=== PATIENT | male | born 1945 | race Caucasian/White ===

== ENCOUNTER 2019-01-27 07:28 | Outpatient (RCR) | payer MEDICARE, SELFPAY | END 2019-01-27 23:59 | disposition home or self-care (01) | LOC: ANHAUDIO 07:28 | PROVIDERS: PCP Family Medicine; Visit Provider Family Medicine | DX: Z46.1 Encounter for fitting and adjustment of hearing aid (principal) | CPT/HCPCS: 99199; V5014 ==

== ENCOUNTER 2019-10-09 08:48 | Outpatient (NON) | payer MEDICARE, SELFPAY ==
[2019-10-09 20:28] LABS: SARS-CoV-2 RNA PCR Negative
== END 2019-10-09 08:49 ==
PROVIDERS: PCP Family Medicine; Visit Provider Family Medicine
DX: Z20.828 Contact with and (suspected) exposure to other viral communicable diseases (principal)
CPT/HCPCS: 87635; C9803; U0003

== ENCOUNTER 2019-11-13 00:45 | Outpatient (CLI) | payer MEDICARE, SELFPAY ==
[2019-11-13 18:12] LABS: SARS-CoV-2 RNA PCR Negative
== END 2019-11-13 00:46 | disposition home or self-care (01) ==
LOC: ANHCOVIDDT 00:45
PROVIDERS: PCP Family Medicine; Visit Provider Internal Medicine Gastroenterology
DX: Z01.812 Encounter for preprocedural laboratory examination (principal); Z20.828 Contact with and (suspected) exposure to other viral communicable diseases
CPT/HCPCS: 87635; C9803; U0003

== ENCOUNTER 2019-11-15 02:04 | Day surgery (SDC) | payer MEDICARE, SELFPAY ==
[2019-10-24 10:54] VITALS: BMI 30.3
--- NOTE | 2019-11-15 08:24 | WPDANESEPPF ---
Anes - Initial Pre Proc Eval Procedure: Operation Date: 11/15/19 13:00 Proposed Procedures p Screening Colonoscopy - Maximus Martell DO Date/Time: 11/15/19 08:24 Surgeon: Maximus Martell DO Pre Op Diagnosis: History of Colon Polyps Patient Data Age: 73 Gender: M Height: 1.93 m Weight: 113 kg Allergies Allergy/AdvReac Type Severity Reaction Status Date / Time No Known Allergies Allergy Verified 11/15/19 12:32 Home Medications Medication Instructions Recorded Confirmed Type albuterol sulfate [ProAir HFA] 1 puff INHALATION DAILY 01/01/19 10/24/19 History aspirin 325 mg PO DAILY 01/01/19 10/24/19 History ezetimibe 10 mg PO DAILY 01/01/19 10/24/19 History fexofenadine [Padmini Allergy] 180 mg PO DAILY 01/01/19 10/24/19 History finasteride 5 mg PO DAILY 01/01/19 10/24/19 History mzqagessrgd-virmamgej-mrebmyyw 1 inh INHALATION DAILY 01/01/19 10/24/19 History [Trelegy Ellipta] levothyroxine 150 mcg PO DAILY 01/01/19 10/24/19 History lisinopril 2.5 mg PO DAILY 01/01/19 10/24/19 History montelukast 10 mg PO DAILY 01/01/19 10/24/19 History vsyutoyojjky-ozppgndk-nwgech 1 tablet PO DAILY 01/01/19 10/24/19 History [Multivitamin 50 Plus] nitroglycerin 0.4 mg SUBLINGUAL PRN PRN 01/01/19 10/24/19 History simvastatin 40 mg PO DAILY 01/01/19 10/24/19 History tamsulosin 0.4 mg PO DAILY 01/01/19 10/24/19 History psyllium husk [Metamucil] 1 tbsp PO DAILY 10/24/19 10/24/19 History Patient hx anesthesia problems: none Family hx anesthesia problems: none PMFSH Past Medical History Medical History (Updated 11/14/19 @ 14:29 by Irvin Hayden DO) BPH (benign prostatic hyperplasia) CAD (coronary artery disease) COPD (chronic obstructive pulmonary disease) Diabetes type 2, controlled GERD (gastroesophageal reflux disease) Hyperlipidemia Hypertension Hypothyroidism Surgical History Surgical History (Updated 11/15/19 @ 13:05 by Irvin Hayden, DO) History of coronary artery stent placement x1, 2017 Social History Social History Smoking packs per day: 2.5 Smoking cigarettes per day: 50.0 Years smoked: 30 Smoking pack-years: 75.00 Smoking status: Former smoker Tobacco type: cigarettes Alcohol intake: current Drinks per week: 14 Alcohol use details: 2 VODKA/TONICS A DAY Substance use: never Substance use type: does not use Living arrangements: alone Spiritual care concerns: No Anes - Eval Final PreProcedure Day of Procedure 11/15/19 08:24 Patient weight: overweight Heart: regular rate and rhythm Lungs: clear to auscultation and normal air movement Airway: Mallampati scale class II Neurological: alert and oriented Last oral intake: >/= 8 hours ASA classification: III Emergent: no Anesthetic plan: proceed Anesthesia type and monitoring: general GIVS and standard monitoring Informed Consent: The patient's anesthetic plan and its attendant risks and benefits were discussed with the patient/family/POA. Questions were solicited and answers provided to the satisfaction of the patient/family/POA.
[2019-11-15 12:34] VITALS: BP 131/93; PULSE 93; RESP 20; TEMP 36.5; O2SAT 99; BMI 29.7
[2019-11-15] MEDS: LACTATED RINGERS 1,000 ML 150 ML IV CONT (13:02)
--- NOTE | 2019-11-15 13:24 | PM.IMHP ---
H&P: [facility] History of Present Illness Date/Time: 11/15/19 13:24 Chief complaint: History of Colon Polyps Narrative: Reason for visit colonoscopy. Impression: Here very pleasant gentleman that is here for screening and surveillance colonoscopy. He has a history adenomatous colon polyps. History of constipation rectal bleeding. The bleeding may be prerenal origin. Constipation is most likely functional. HTN. HLD. BPH. COPD. CAD status post stent placement x1. Skin cancer: Melanoma. Diabetes mellitus. Recommendation: Colonoscopy. History: Very pleasant gentleman is here for screening and surveillance colonoscopy. He has a history adenomatous colon polyps. Patient does have some chronic constipation and did notice some possible blood in the stool. He is here for colonoscopy to assess for inflammatory neoplastic disease. The patient does have a history of a chronic cough which is attributed to COPD. He has occasional shortness of breath and dyspnea exertion. Physical examination: General: very pleasant patient in no acute distress. HEENT: Head was normocephalic sclerae is clear mouth without masses neck was supple. Heart: Rate rhythm regular without S3 or S4. Lungs: CTA. Abdomen: Soft with no guarding or rigidity. Bowel sounds were active. Neurologic: Cranial nerves 2 through 12 intact. No focal defects. No clonus. Musculoskeletal system: Revealed no joint tenderness or swelling no muscle atrophy. Extremities: Reveal no significant edema. Skin: Warm and dry with normal turgor. Mental status: intact. Patient is alert and oriented. Review of Systems Review of Systems: All systems reviewed & are unremarkable except as noted in HPI and below PMFSH Past Medical History Medical History (Updated 11/14/19 @ 14:29 by Irvin Haydne DO) BPH (benign prostatic hyperplasia) CAD (coronary artery disease) COPD (chronic obstructive pulmonary disease) Diabetes type 2, controlled GERD (gastroesophageal reflux disease) Hyperlipidemia Hypertension Hypothyroidism Surgical History Surgical History (Updated 11/15/19 @ 13:05 by Irvin Hayden DO) History of coronary artery stent placement x1, 2016 Social History Social History Smoking packs per day: 2.5 Smoking cigarettes per day: 50.0 Years smoked: 30 Smoking pack-years: 75.00 Smoking status: Former smoker Tobacco type: cigarettes Alcohol intake: current Drinks per week: 14 Alcohol use details: 2 VODKA/TONICS A DAY Substance use: never Substance use type: does not use Living arrangements: alone Spiritual care concerns: No Meds Home Medications and Allergies Home Medications Medication Instructions Recorded Confirmed Type albuterol sulfate [ProAir HFA] 1 puff INHALATION DAILY 01/01/19 10/24/19 History aspirin 325 mg PO DAILY 01/01/19 10/24/19 History ezetimibe 10 mg PO DAILY 01/01/19 10/24/19 History fexofenadine [Padmini Allergy] 180 mg PO DAILY 01/01/19 10/24/19 History finasteride 5 mg PO DAILY 01/01/19 10/24/19 History hrabibwujcz-ufmzihcee-yivhuuqr 1 inh INHALATION DAILY 01/01/19 10/24/19 History [Trelegy Ellipta] levothyroxine 150 mcg PO DAILY 01/01/19 10/24/19 History lisinopril 2.5 mg PO DAILY 01/01/19 10/24/19 History montelukast 10 mg PO DAILY 01/01/19 10/24/19 History ovbjqvhitlhe-spkrcvvi-omuada 1 tablet PO DAILY 01/01/19 10/24/19 History [Multivitamin 50 Plus] nitroglycerin 0.4 mg SUBLINGUAL PRN PRN 01/01/19 10/24/19 History simvastatin 40 mg PO DAILY 01/01/19 10/24/19 History tamsulosin 0.4 mg PO DAILY 01/01/19 10/24/19 History psyllium husk [Metamucil] 1 tbsp PO DAILY 10/24/19 10/24/19 History Allergies Allergy/AdvReac Type Severity Reaction Status Date / Time No Known Allergies Allergy Verified 11/15/19 12:32 Vital Signs Vital Signs - 24 hr 11/15/19 12:34 Temperature 36.5 C Pulse
[2019-11-15 14:33] VITALS: BP 80/51; PULSE 75; RESP 26; O2SAT 99
[2019-11-15 14:43] VITALS: BP 83/58; PULSE 74; RESP 21; O2SAT 99
[2019-11-15 14:53] VITALS: BP 100/67; PULSE 70; RESP 19; O2SAT 100
== END 2019-11-15 15:05 | disposition home or self-care (01) ==
PROVIDERS: PCP Family Medicine; Visit Provider Internal Medicine Gastroenterology
PROC: 0DJD8ZZ Inspection of Lower Intestinal Tract, Via Natural or Artificial Opening Endoscopic (ICD-10-PCS; CPT 45378; principal; 2019-11-15 13:00)
DX: Z12.11 Encounter for screening for malignant neoplasm of colon (principal); D12.2 Benign neoplasm of ascending colon; K63.5 Polyp of colon; K57.30 Diverticulosis of large intestine without perforation or abscess without bleeding; K64.8 Other hemorrhoids; I10 Essential (primary) hypertension; I25.10 Atherosclerotic heart disease of native coronary artery without angina pectoris; E78.5 Hyperlipidemia, unspecified; E11.9 Type 2 diabetes mellitus without complications; E03.9 Hypothyroidism, unspecified; K21.9 Gastro-esophageal reflux disease without esophagitis; J44.9 Chronic obstructive pulmonary disease, unspecified; N40.0 Benign prostatic hyperplasia without lower urinary tract symptoms; Z79.82 Long term (current) use of aspirin; Z95.5 Presence of coronary angioplasty implant and graft; Z87.891 Personal history of nicotine dependence
CPT/HCPCS: 45380; 88305; J2704; J7120

== ENCOUNTER 2020-01-19 10:52 | Outpatient (CLI) | payer MEDICARE, SELFPAY ==
--- NOTE | ~2020-01-19 | XR_ITS ---
XR abdomen/kub 1V DATE: 01/19/2020 11:17 INDICATION: Left lower quadrant abdominal pain, constipation TECHNIQUE: AP projection, 2 views COMPARISON: 02/27/2011 retrogram pyelogram 01/09/2011 CT urogram FINDINGS: There is a moderate amount of fecal material in the colon but no evidence of bowel obstruct ion. The psoas shadows are intact. No visceromegaly is detected. 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 IMPRESSION: Nonspecific abdomen; no evidence of bowel obstruction Reviewed, dictated and finalized at [facility]. Reviewed, dictated and finalized at location A. HER POLISHER
== END 2020-01-19 10:53 | disposition home or self-care (01) ==
LOC: ANHIMG 10:59
PROVIDERS: PCP Family Medicine; Visit Provider Nurse Practitioner
DX: R10.32 Left lower quadrant pain (principal); M48.15 Ankylosing hyperostosis [Forestier], thoracolumbar region; K57.92 Diverticulitis of intestine, part unspecified, without perforation or abscess without bleeding; K59.00 Constipation, unspecified
CPT/HCPCS: 74018

== ENCOUNTER → 2020-08-07 14:31 | Outpatient (CLI) | payer MEDICARE, SELFPAY ==
--- NOTE | ~2020-08-07 | XR_ITS ---
EXAMINATION: XR knee LT min 4V DATE: 08/07/2020 15:00 INDICATION: Left knee pain. TECHNIQUE: 4 views of left knee were obtained. COMPARISON: None. FINDINGS: Bone alignment is normal. No fracture. There is mild tricompartmental osteoarthritis charac terized by tiny marginal osteophytes. No knee joint effusion. IMPRESSION: 1. Mild left knee osteoarthritis. Reviewed, dictated and finalized at location A.
== END ==
PROVIDERS: PCP Family Medicine; Visit Provider Nurse Practitioner
DX: M25.562 Pain in left knee (principal); M17.12 Unilateral primary osteoarthritis, left knee
CPT/HCPCS: 73564

== ENCOUNTER → 2020-10-05 09:34 | Outpatient (CLI) | payer MEDICARE, SELFPAY ==
--- NOTE | ~2020-10-05 | MR_ITS ---
EXAMINATION: MR knee LT wo con DATE: 10/05/2020 11:08 INDICATION: 6-8 months of medial left knee pain TECHNIQUE: Magnetic resonance imaging (MRI) of the left knee was performed without intravenous contra st. Sequences included coronal PD-weighted FSE, coronal PD-weighted FS FSE, sagittal T2-weighted FSE , sagittal PD-weighted FS FSE and axial PD weighted fat saturated FSE. COMPARISON: Left knee radiographs dated 08/07/2020 FINDINGS: Medial compartment: Complex medial meniscal tear which includes both a longitudinal horizontal tear plane extending to th e inferior articular surface of the body and posterior horn as well as a vertical parrot beak configu ration tear plane at the posterior horn. Articular cartilage is normal. Lateral compartment: Lateral meniscus is normal. Articular cartilage is normal. Patellofemoral compartment: Deep chondral fissure with mild underlying subarticular edema extending obliquely across the medial p atellar facet. Additional partial thickness chondral flap tear at the central aspect of the lateral f acet. The flap which measures approximately 4 mm medial collateral involves approximately one third o f the cartilage thickness on axial series 4, image 10. Trochlear cartilage is normal. Ligaments and tendons: Anterior and posterior cruciate ligaments are normal. There is edema extending along the deep and sup erficial margin of the cephalad half of the medial collateral ligament which is mildly thickened but without significant increased signal at its femoral origin. Could not exclude acute sprain however th is more likely represents scarring related to chronic sprain with surrounding reactive edema related to the torn meniscus. The extensor mechanism is normal. The visualized medial and lateral hamstring t endons as well as the iliotibial band are normal. Fluid: Small left knee joint effusion at the suprapatellar pouch. Moderate-sized Cabello's cyst measuring 6 cm craniocaudally and measuring up to 1.3 x 1.0 cm. No loose osteochondral bodies identified. Osseous/other: Bone alignment is normal.. No fracture or pathologic marrow replacing process. IMPRESSION: 1. Complex medial meniscal tear. 2. 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 3. Age-indeterminate sprain of the proximal medial collateral ligament, favor chronic. 4. Small left knee joint effusion and moderate-sized Cabello's cyst. Reviewed, dictated and finalized at location A. IMPRESSION: 1. Complex medial meniscal tear. 2. 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 3. Age-indeterminate sprain of the proximal medial collateral ligament, favor c hronic. 4. Small left knee joint effusion and moderate-sized Cabello's cyst.
== END ==
PROVIDERS: Visit Provider Nurse Practitioner Family
DX: M25.562 Pain in left knee (principal); S83.232A Complex tear of medial meniscus, current injury, left knee, initial encounter; S83.412A Sprain of medial collateral ligament of left knee, initial encounter; M25.462 Effusion, left knee; M71.22 Synovial cyst of popliteal space [Baker], left knee
CPT/HCPCS: 73721

== ENCOUNTER 2020-10-08 08:30 | Outpatient (RCR) | payer MEDICARE, SELFPAY ==
--- NOTE | 2020-09-03 10:55 | PTOPEVAL ---
Thank you for referring Eligio Franklin to [facility].? The patient is scheduled to be seen for therapy? 1 x/week for 6 weeks. Please review, sign, date and return this plan of care MARISOL. I agree with and certify that the following plan of care is medically necessary. Referring Physician Date Attending Provider: Kermit Sullivan MD Diagnosis OA of left knee Additional Evaluation Detail He was walking 1.5 to 2 miles but stopped due to pain. Subjective Information He hit his left knee on this Query Text:As Reported By Patient/ mower 6 months ago. He has Family been wearing a basic knee wrap brace to help his pain. He has been using ice for the pain. He was having increased pain with twisting the knee, distance walking, squating, getting on/off the ground. Pain Assessment Self Report Pain Assessment Left Knee(s) Reported Pain Level 4 Pain Description Aching,Tightness Pain Frequency Continuous Lowest Pain Intensity 3 Greatest Pain Intensity 7 Pain Aggravating Factors ADL's,Bending,Exercise/ Activity,Stair Climbing, Walking,Weight Bearing/ Standing Lower Extremity Range of Motion Knee Range of Motion Left Knee Flexion Range of Motion - Active 118 Knee Extension Range of Motion - Active 0 Lower Extremity Muscle Strength Testing Hip Strength Bilateral Hip Flexion Strength 4+ Good + Hip Extension Strength 4 Good Hip Abduction Strength 3+ Fair + Knee Strength Bilateral Knee Flexion Strength 5 Normal Knee Extension Strength 5 Normal Muscle Length Testing Muscle Length Testing Two-Joint Hip Flexor Shortened Muscles Short (R) Iliopsoas,Short (L) Iliopsoas,Short (R) Rectus Femoris,Short (L) Rectus Femoris,Short (R) Ilial Tib Band,Short (L) Ilial Tib Band Piriformis w/Hip Flexion <90 Degrees (R) Moderate Tightness,(L) Moderate Tightness Right Prone Hip Internal Rotator Length 20 (degrees) Left Prone Hip Internal Rotator Length ( 20 degrees) Left Hamstring Length -35:(90 - 90 Position) Right Hamstring Length -35:(90 - 90 Position) Posture Standing Position Weight Distribution Weight Shifted Right Hip Posture (L) Externally Rotated,(R) Externally Rotated Additional Posture Comments
--- NOTE | 2020-10-08 09:21 | PTOPEVAL ---
Physical Therapy Discharge Summary Thank you for referring Eligio Franklin to [facility]. Eligio has attended 6 therapy visits to address left knee pain. He demonstrates improved pain, strength and function. He has achieved his therapy goals at this time. Will DC skilled therapy services with recommendations he continue with HEP. Please review, sign, date and return this discharge summary MARISOL. I agree with and certify that the following plan of care is medically necessary. Referring Physician Date Attending Provider: Kermit Sullivan MD Problem Diagnosis OA of left knee Subjective Information He does feel his knee is Query Text:As Reported By Patient/ better. STates the stretches Family have helped. Reports improved left knee is popping and clicking with movement. Denies feeling the knee out of joint . He has not returned to his normal walk because he is performing his exercises instead. He is more aware of his leg position with activities. Denies any problems with regular walking, community walking in the store or on steps. Pain Assessment Self Report Pain Assessment Left Knee(s) Reported Pain Level 2 Pain Description Aching Lowest Pain Intensity 0 Greatest Pain Intensity 2 Lower Extremity Muscle Strength Testing Hip Strength Bilateral Hip Flexion Strength 5 Normal Hip Extension Strength 5 Normal Hip Abduction Strength 4- Good - Special Tests-Lower Extremity Hip Special Tests Trendelenburg Sign Positive Left,Positive Right Hip Special Test Comments single leg stance: left: 8 sec, right: 7 sec, poor trunk and LE control functional squat/sit<>stand: demo proper LE control and position- no pain Gait Assessment Gait Pattern Assessment Gait Pattern Observed Decreased Stride Length - Left ,Decreased Stride Length - Right,No Heel Strike - Left,No Heel Strike - Right,Trunk Lateral Lean - Left,Trunk Lateral Lean - Right Other Gait Observations jomar hip ext. rotation 2 Minute Walk Total Distance Walked (feet) 447 2 Minute Walk Gait Speed Score (feet/ 3.72 second) 2 Minute Walk Test Comments left knee pain 2/ Stair Climbing Assessment
== END 2020-10-08 16:59 | disposition home or self-care (01) ==
LOC: ANHPT 08:30
PROVIDERS: PCP Family Medicine; Visit Provider Family Medicine
DX: M17.12 Unilateral primary osteoarthritis, left knee (principal)
CPT/HCPCS: 97110; 97140; 97161

== ENCOUNTER → 2021-08-25 10:50 | Outpatient (CLI) | payer MEDICARE, SELFPAY ==
--- NOTE | ~2021-08-25 | XR_ITS ---
EXAMINATION: XR chest 2V Exam Date/Time: 08/25/2021 11:10 CDT HISTORY: Chest discomfort Comparison: 03/03/2018. RESULT: Lines, tubes, and devices: None. Lungs and pleura: Diffuse reticular opacities. Bibasilar scar/atelectasis and senescent change. No f ocal consolidation. Cardiomediastinal silhouette: Stable cardiomediastinal silhouette. Other: No acute osseous or upper abdominal finding. IMPRESSION: Pulmonary findings may reflect mild interstitial edema. Reviewed, dictated and finalized at location K.
== END ==
PROVIDERS: PCP Family Medicine; Visit Provider Nurse Practitioner Adult Health
DX: R07.89 Other chest pain (principal); J22 Unspecified acute lower respiratory infection
CPT/HCPCS: 71046

== ENCOUNTER 2022-03-12 00:28 | Day surgery (SDC) | payer MEDICARE, SELFPAY ==
[2022-02-25 09:02] VITALS: BMI 29.2
--- NOTE | 2022-02-25 10:15 | PC.NURSE ---
Patient stated during pre-op interview that he does have problems with constipation and his last prep for colonoscopy was not a good prep. I reviewed his report from Dr. Martell dated 11/2019 and he noted fair to poor prep. I talked to patient about doing a 2 day prep and he is in agreement. I emailed him the instructions for the 2 day prep.
--- NOTE | 2022-03-11 13:10 | PM.HPGS ---
History of Present Illness History of Present Illness Consent: Risks, benefits, and alternatives have been discussed and questions answered. Patient agrees to proceed with procedure. Chief complaint: Rectal bleeding Narrative: Eligio Franklin is a 76 year old male Who has been seen blood in his stools. For the past few months he will notice after a bowel movement the blood seems to be seeping out of his stools. Two years ago he had a colonoscopy with removal of 4 adenomas from the ascending colon. Review of Systems Review of Systems: All systems reviewed & are unremarkable except as noted in HPI and below PMFSH Past Medical History Medical History BPH (benign prostatic hyperplasia) CAD (coronary artery disease) COPD (chronic obstructive pulmonary disease) Degenerative joint disease of knee Diabetes type 2, controlled GERD (gastroesophageal reflux disease) Hyperlipidemia Hypertension Hypothyroidism Left knee pain Medial meniscus tear Surgical History Surgical History History of coronary artery stent placement x1, 2016 Social History Social History Smoking packs per day: 2.5 Smoking cigarettes per day: 50.0 Years smoked: 30 Smoking pack-years: 75.00 Smoking status: Former smoker Tobacco type: cigarettes Alcohol intake: current Drinks per week: 2 Alcohol use details: VODKA AND FLAVORED Substance use: never Substance use type: does not use Living arrangements: with family Spiritual care concerns: No Meds Home Medications and Allergies Home Medications Medication Instructions Recorded Confirmed Type albuterol sulfate 90 mcg/actuation 2 puff inhalation Q4H PRN 01/01/19 02/25/22 History aerosol inhaler (ProAir HFA) Shortness Of Breath Or Wheezing ezetimibe 10 mg tablet 10 mg PO DAILY 01/01/19 02/25/22 History fexofenadine 180 mg tablet 180 mg PO DAILY 01/01/19 02/25/22 History (Padmini Allergy) finasteride 5 mg tablet 5 mg PO DAILY 01/01/19 02/25/22 History fluticasone fur. 100 mcg-umeclid 1 inh inhalation DAILY 01/01/19 02/25/22 History 62.5 mcg-vilant 25 mcg inhalat.powder (Trelegy Ellipta) levothyroxine 150 mcg tablet 150 mcg PO DAILY 01/01/19 02/25/22 History lisinopril 2.5 mg tablet 2.5 mg PO DAILY 01/01/19 02/25/22 History montelukast 10 mg tablet 10 mg PO DAILY 01/01/19 02/25/22 History bcavjwxbvrsi-xphfkdnk-egnemx 1 tablet PO DAILY 01/01/19 02/25/22 History tablet (Multivitamin 50 Plus tablet) nitroglycerin 0.4 mg sublingual 0.4 mg sublingual PRN PRN Chest 01/01/19 02/25/22 History tablet Pain simvastatin 40 mg tablet 40 mg PO DAILY 01/01/19 02/25/22 History tamsulosin 0.4 mg capsule 0.4 mg PO DAILY 01/01/19 02/25/22 History allopurinol 100 mg tablet 100 mg PO DAILY PRN GOUT 02/25/22 02/25/22 History aspirin 81 mg capsule 81 mg PO DAILY 02/25/22 02/25/22 History cholecalciferol (vitamin D3) 50 50 mcg PO DAILY 02/25/22 02/25/22 History mcg (2,000 unit) capsule (Vitamin D3) cyanocobalamin (vitamin B-12) 1,000 mcg PO DAILY 02/25/22 02/25/22 History 1,000 mcg tablet (Vitamin B-12) ipratropium 0.5 mg-albuterol 3 mg 3 ml inhalation Q6H PRN Shortness 02/25/22 02/25/22 History (2.5 mg base)/3 mL nebulization Of Breath Or Wheezing soln naproxen 500 mg tablet 500 mg PO BID PRN GOUT 02/25/22 02/25/22 History omega-3 fatty acids 1,000 mg PO DAILY 02/25/22 02/25/22 History Allergies Allergy/AdvReac Type Severity Reaction Status Date / Time No Known Allergies Allergy Verified 03/12/22 08:15 Exam Resp: Auscultation: clear to auscultation bilaterally Cardio: Rate: regular rate Rhythm: regular rhythm GI: GI Palp: Yes Soft to palpation and No Tenderness to palpation present (GI) Assessment and Plan Assessment and plan (1) Blood in stool: Code(s): K92.1 - Melena
[2022-03-12 08:19] VITALS: BP 131/77; PULSE 102; RESP 20; TEMP 36.2; O2SAT 100; BMI 29.0
[2022-03-12] MEDS: LACTATED RINGERS 1,000 ML 150 ML IV CONT (08:28)
--- NOTE | 2022-03-12 09:04 | WPDANESEPPF ---
Anes - Initial Pre Proc Eval Procedure: Operation Date: 03/12/22 09:30 Proposed Procedures p Colonoscopy - Mert Auguste MD Date/Time: 03/12/22 09:04 Surgeon: Mert Auguste MD Pre Op Diagnosis: Rectal bleeding Patient Data Age: 76 Gender: M Height: 1.93 m Weight: 108.2 kg Last Vital Signs Temp 97.1 F L 03/12/22 08:19 Pulse 102 H 03/12/22 08:19 Resp 20 03/12/22 08:19 BP 131/77 03/12/22 08:19 Pulse Ox 100 03/12/22 08:19 O2 Del Method Room Air 03/12/22 08:19 Allergies Allergy/AdvReac Type Severity Reaction Status Date / Time No Known Allergies Allergy Verified 03/12/22 08:15 Home Medications Medication Instructions Recorded Confirmed Type albuterol sulfate 90 mcg/actuation 2 puff inhalation Q4H PRN 01/01/19 02/25/22 History aerosol inhaler (ProAir HFA) Shortness Of Breath Or Wheezing ezetimibe 10 mg tablet 10 mg PO DAILY 01/01/19 03/12/22 History fexofenadine 180 mg tablet 180 mg PO DAILY 01/01/19 03/12/22 History (Padmini Allergy) finasteride 5 mg tablet 5 mg PO DAILY 01/01/19 03/12/22 History fluticasone fur. 100 mcg-umeclid 1 inh inhalation DAILY 01/01/19 03/12/22 History 62.5 mcg-vilant 25 mcg inhalat.powder (Trelegy Ellipta) levothyroxine 150 mcg tablet 150 mcg PO DAILY 01/01/19 03/12/22 History lisinopril 2.5 mg tablet 2.5 mg PO DAILY 01/01/19 03/12/22 History montelukast 10 mg tablet 10 mg PO DAILY 01/01/19 03/12/22 History vfgusueaexsr-mezuszns-affpdk 1 tablet PO DAILY 01/01/19 03/12/22 History tablet (Multivitamin 50 Plus tablet) nitroglycerin 0.4 mg sublingual 0.4 mg sublingual PRN PRN Chest 01/01/19 02/25/22 History tablet Pain simvastatin 40 mg tablet 40 mg PO DAILY 01/01/19 03/12/22 History tamsulosin 0.4 mg capsule 0.4 mg PO DAILY 01/01/19 03/12/22 History allopurinol 100 mg tablet 100 mg PO DAILY PRN GOUT 02/25/22 03/12/22 History aspirin 81 mg capsule 81 mg PO DAILY 02/25/22 03/12/22 History cholecalciferol (vitamin D3) 50 50 mcg PO DAILY 02/25/22 03/12/22 History mcg (2,000 unit) capsule (Vitamin D3) cyanocobalamin (vitamin B-12) 1,000 mcg PO DAILY 02/25/22 03/12/22 History 1,000 mcg tablet (Vitamin B-12) ipratropium 0.5 mg-albuterol 3 mg 3 ml inhalation Q6H PRN Shortness 02/25/22 03/12/22 History (2.5 mg base)/3 mL nebulization Of Breath Or Wheezing soln naproxen 500 mg tablet 500 mg PO BID PRN GOUT 02/25/22 03/12/22 History omega-3 fatty acids 1,000 mg PO DAILY 02/25/22 03/12/22 History Patient hx anesthesia problems: none Family hx anesthesia problems: none Results Review: All pre-operative results and documents have been reviewed as part of the pre-operative evaluation. [facility] Past Medical History Medical History BPH (benign prostatic hyperplasia) CAD (coronary artery disease) COPD (chronic obstructive pulmonary disease) Degenerative joint disease of knee Diabetes type 2, controlled GERD (gastroesophageal reflux disease) Hyperlipidemia Hypertension Hypothyroidism Left knee pain Medial meniscus tear Surgical History Surgical History History of coronary artery stent placement x1, 2017 Social History Social History Smoking packs per day: 2.5 Smoking cigarettes per day: 50.0 Years smoked: 30 Smoking pack-years: 75.00 Smoking status: Former smoker Tobacco type: cigarettes Alcohol intake: current Drinks per week: 2 Alcohol use details: VODKA AND FLAVORED Substance use: never Substance use type: does not use Living arrangements: with family Spiritual care concerns: No Anes - Eval Final PreProcedure Day of Procedure 03/12/22 09:04 Patient weight: obese Heart: regular rate and rhythm Lungs: clear to auscultation Airway: Mallampati scale class III Neurological: alert and oriented Last oral intake: >/= 8 hour
[2022-03-12 09:50] VITALS: BP 98/76; PULSE 76; RESP 20; O2SAT 96
[2022-03-12 10:00] VITALS: BP 104/67; PULSE 72; RESP 20; O2SAT 98
[2022-03-12 10:10] VITALS: BP 103/73; PULSE 69; RESP 18; O2SAT 98
== END 2022-03-12 10:24 | disposition home or self-care (01) ==
PROVIDERS: PCP Family Medicine; Visit Provider Internal Medicine Gastroenterology
PROC: 0DJD8ZZ Inspection of Lower Intestinal Tract, Via Natural or Artificial Opening Endoscopic (ICD-10-PCS; CPT 45378; principal; 2022-03-12 09:30)
DX: K92.1 Melena (principal); K57.30 Diverticulosis of large intestine without perforation or abscess without bleeding; Z86.010 Personal history of colon polyps; I25.10 Atherosclerotic heart disease of native coronary artery without angina pectoris; J44.9 Chronic obstructive pulmonary disease, unspecified; I10 Essential (primary) hypertension; E78.5 Hyperlipidemia, unspecified; E11.9 Type 2 diabetes mellitus without complications; E03.9 Hypothyroidism, unspecified; N40.0 Benign prostatic hyperplasia without lower urinary tract symptoms; K21.9 Gastro-esophageal reflux disease without esophagitis; Z95.5 Presence of coronary angioplasty implant and graft; Z79.51 Long term (current) use of inhaled steroids; Z79.82 Long term (current) use of aspirin; Z87.891 Personal history of nicotine dependence; E66.9 Obesity, unspecified; Z68.29 Body mass index [BMI] 29.0-29.9, adult
CPT/HCPCS: 45378; J2704; J7120

== ENCOUNTER → 2022-11-18 15:03 | Outpatient (CLI) | payer MEDICARE, SELFPAY ==
--- NOTE | ~2022-11-18 | XR_ITS ---
EXAMINATION: XR foot RT min 3V DATE: 11/18/2022 15:47 INDICATION: Right foot pain, initial encounter TECHNIQUE: Dorsoplantar, lateral, and 2 oblique views of the right foot were obtained. COMPARISON: None. FINDINGS: There is an acute, traumatic, closed, transverse fracture at the base of the fifth metatars al extending to the tarsometatarsal joint. No additional fracture is identified. There is soft tissue swelling of the foot and ankle. There is moderate osteoarthritis at the first metatarsophalangeal lesa int and multiple interphalangeal joints. IMPRESSION: 1. Transverse intra-articular fracture at the base of the fifth metatarsal. Reviewed, dictated and finalized at location F.
--- NOTE | ~2022-11-18 | XR_ITS ---
EXAMINATION: XR ankle RT min 3V INDICATION: Right ankle pain TECHNIQUE: Four views of the right ankle are obtained. COMPARISON: None available FINDINGS: There is diffuse soft tissue swelling of ankle. Ankle mortise is intact. There is a fractur e at the base of the fifth metatarsal, described on the foot radiographs. No ankle fracture is identi fied. Calcified atherosclerosis is noted. There are posterior and plantar calcaneal enthesophytes. IMPRESSION: 1. Diffuse soft tissue swelling of ankle without ankle fracture identified. 2. Fifth metatarsal base fracture. Reviewed, dictated and finalized at location F.
== END ==
PROVIDERS: PCP Nurse Practitioner Adult Health; Visit Provider Nurse Practitioner Adult Health
DX: S92.351A Displaced fracture of fifth metatarsal bone, right foot, initial encounter for closed fracture (principal); T14.90XA Injury, unspecified, initial encounter
CPT/HCPCS: 73610; 73630

== ENCOUNTER 2023-07-20 10:11 | Outpatient (CLI) | payer MEDICARE, SELFPAY ==
--- NOTE | ~2023-07-20 | XR_ITS ---
Clinical Indication: Cough PA and lateral views of the chest: Comparison: 08/25/2021 Findings: The lungs are clear, without evidence of focal consolidation or pleural effusion. Cardiome diastinal silhouette is within normal limits. Bones and soft tissues are unremarkable. Impression: Normal chest. Reviewed, dictated and finalized at location . Impression: Normal chest.
== END 2023-07-20 10:12 ==
PROVIDERS: PCP Family Medicine; Visit Provider Registered Nurse
DX: R05.9 Cough, unspecified (principal)
CPT/HCPCS: 71046

== ENCOUNTER 2023-09-08 13:35 | Outpatient (CLI) | payer MEDICARE, SELFPAY ==
--- NOTE | 2023-09-08 16:23 | WPDSIXMINUTE ---
Six Minute Walk Procedure Procedure Performed Pulmonary Stress Test (6 min walk) Six Minute Walk Six Minute Walk: This is a 6 minute walk test. The test was performed and interpreted in accordance with the 2014 ERS/ATS task force guidelines. Findings: The patient's resting room air oxygen saturation measured by pulse oximetry was 95% and heart rate was 82 bpm. Patient ambulated for 366 meters and oxygen saturation remained 94 to 96%. Heart rate at the end of the study was 103 bpm. The patient did not qualify for supplemental oxygen at rest or with ambulation. There are no prior studies for comparison.
--- NOTE | 2023-09-08 16:24 | WPDPFTINT ---
PFT Procedure Performed PFT Procedure Performed Spirometry with Pre/Post Bronchodilator Plethysmography (Lung Vol) Diffusing Cap (DLCO) Flow Vol Loop PFT Interpretation This is a pulmonary function test with pre and post-bronchodilator spirometry, plethysmography and diffusing capacity. The test was performed and results interpreted in accordance with the 2019 and 2005 ATS/ERS Task Force guidelines respectively using the Global Lung Function Initiative-2012 reference equations. Patient demonstrated good effort and cooperation. Reproducibility criteria were met. The quality of the pre bronchodilator spirometry maneuver was Grade A and post bronchodilator spirometry maneuver was Grade A. Findings: Spirometry: There is decreased maximal expiratory airflow at low lung volumes with concave expiratory flow tracing. The contour the inspiratory flow tracing is normal. The pre bronchodilator FVC is 4.69 L, 98% predicted. The pre bronchodilator FEV1 is 3.05 L, 87% predicted. The pre bronchodilator FEV1: FVC ratio is 65%. The post bronchodilator FVC is 4.72 L, representing 1% increase. The post bronchodilator FEV1 is 3.15 L, representing a 3% increase. The post bronchodilator FEV1: FVC ratio is 67%. Plethysmography: The total lung capacity is 7.17 L, 87% predicted. The functional residual capacity is 4.23 L, 93% predicted. The residual volume is 2.48 L, 84% predicted. Diffusing capacity: The diffusing capacity unadjusted for hemoglobin and carboxyhemoglobin is 20.3, 76% predicted. The diffusing capacity adjusted for alveolar volume is 3.36, 101% predicted. Impression: The spirometry is normal without evidence of an obstructive abnormality. There is no significant improvement after inhaling a single dose of albuterol. The lung volumes are normal. The diffusing capacity is normal. There are no prior studies for comparison
== END 2023-09-08 13:36 | disposition home or self-care (01) ==
LOC: ANHPFT 13:36
PROVIDERS: PCP Family Medicine; Visit Provider Nurse Practitioner Family
DX: J44.9 Chronic obstructive pulmonary disease, unspecified (principal)
CPT/HCPCS: 94060; 94618; 94726; 94729

== ENCOUNTER 2024-07-12 12:49 | Outpatient (CLI) | payer MEDICARE, SELFPAY ==
--- NOTE | ~2024-07-12 | CT_ITS ---
CT Scan of the Chest without Contrast: Clinical Indication: Chronic cough Technique: Contiguous sections were acquired throughout the chest without intravenous contrast. Dose reduction technique was used on this scan by utilizing automated exposure control and iterative recon struction technique. The dose-length product (DLP) was 482.12 mGy-cm. Findings: There is no evidence of any significant mediastinal, hilar or axillary lymphadenopathy. Extensive cor onary artery calcifications are present. There is no evidence of pleural or pericardial effusion. 3 mm right apical nodule present (axial image 20). There are tree-in-bud opacities in the medial righ t middle lobe with minimal scarring. There are additional minimal tree-in-bud opacities and small nod ules in the left lower lobe. There is minimal bronchiolectasis in the bilateral lower lobes and media l right middle lobe. Images through the upper abdomen reveal no abnormalities. Impression: Findings consistent with acute on chronic small airways infection, most prominent at the medial right middle lobe and left lower lobe. Reviewed, dictated and finalized at location . Impression: Findings consistent with acute on chronic small airways infection, most promine nt at the medial right middle lobe and left lower lobe.
--- OUTSIDE RECORDS SUMMARY | 2024-07-12 12:54 | XMS_ITS | Clinical Summary ---
Author Organization [facility] Address [address] [place] [address] Care Team Providers Care Engineer Conductor Name Role Phone Kermit Sullivan MD Primary Care Provider [phone] Allergies No known active allergies Medications finasteride (PROSCAR) 5 mg tablet TAKE 1 TABLET BEDTIME Active ezetimibe (ZETIA) 10 mg tablet take 1 tablet daily Active levothyroxine (SYNTHROID) 150 mcg tablet daily. Activ e montelukast (SINGULAIR) 10 mg tablet daily. Active multivitamin-m jq-kwds-GF-vit K 18 mg iron-400 mcg-25 mcg tablet daily. Active albuterol HFA (PROVENTIL HFA,VENTOLIN HFA,PROAIR HFA) 90 mcg/actuation inhaler 2 puffs daily as needed Active tamsulosin (FLOMAX) 0.4 mg extended release capsule Take 1 capsule (0.4 mg total) by mouth daily 7 Active simvastatin (ZOCOR) 40 mg tablet daily. Active lisinopril (PRINIVIL,ZEST RIL) 2.5 mg tablet daily. Active TRELEGY ELLIPTA 100-62.5-25 mcg blister with device INL 1 PUFF PO AT THE SAME TIME QD 1 9 Active ipratropium-al buteroL (DUO-NEB) 0.5-2.5 mg/3 mL nebulizer solution USE 1 VIAL BY NEBULIZATION ROUTE EVERY 6 HOURS NEEDED 0 Active UNABLE TO FIND once a week Med Name: vitamin D3 50mcg Active aspirin 81 mg chewable tabletIndicati ons:Coronary artery disease involving [place] coronary artery of [place] heart without angina pectoris Take 1 tablet (81 mg total) by mouth daily 30 tablet 11 1 Active allopurinoL (ZYLOPRIM) 100 mg tablet Take 1 tablet (100 mg total) by mouth as needed 1 Active naproxen (NAPROSYN) 500 mg tablet TAKE 1 TABLET BY MOUTH TWICE A DAY NEEDED FOR JOINT INFLAMMATION FROM GOUT 2 Active omega-3/dha/ep a/dpa/fish oil (OMEGA-3 2100 ORAL) Take by mouth Active cetirizine (ZyrTEC) 10 mg tablet Take 1 tablet (10 mg total) by mouth daily Active OneTouch Ultra Test strip TAKE 1 MISCELLANEOUS STRIP EVERY MORNING 3 Active nitroglycerin (NITROSTAT) 0.[address] 1 tablet (0.4 mg total) under the tongue as needed for chest pain 100 tablet 3 Active Active Problems Problem Noted Date Diagnosed Date Abnormal findings on cardiac catheterization Abnormal stress test 05/30/2024 Coronary artery disease invo lving [place] coronary artery of [place] heart without angina pectoris 03/14/2020 Diabetes mellitus 11/03/2016 Hyperlipidemia 11/03/2016 Hypertension 11/03/2016 Encounters Date Type Department Care Team Description 07/07/2024 11:35 AM CDT - 07/07/2024 12:40 PM CDT Surgery [address] [place] [address] Morgan Paredes MD LEFT HEART CATHETERIZATION WITH CORONARY ANGIOGRAPHY AND WITH OR WITHOUT LEFT VENTRICULOGRAM [id number] 07/07/2024 11:35 AM CDT - 07/07/2024 11:59 PM CDT Hospital Encounter [address] [place] [address] Morgan Paredes MD Coronary artery disease involving [place] coronary artery of [place] heart without angina pectoris [I25.10] (Primary Dx); Abnormal stress test Discharge Disposition: Discharge to home or self care 07/07/[address] [place] [phone] Morgan Paredes MD 06/28/2024 Results Follow-Up [address] [place] [address] Park Martinez RMA Basic metabolic panel, CBC with auto differential 06/27/2024 Orders Only [address] [place] [address] [place] [address] Morgan Paredes MD 06/22/[address] [place] [address] [place] [address] Morgan Paredes MD Procedure ([facility]) 05/31/[address] [place] [address] [place] [address] Morgan Paredes MD Test Results (Carotid Doppler) 05/31/2024 Results Follow-Up [address] [place] [address] Park Martinez RMA US Carotids Duplex Bilateral 05/31/2024 Results Follow-Up [address] [place] [address] Park Martinez RMA Transthoracic Echo (TTE) With Bubble Study 05/30/2024 1:00 PM CDT Office Visit [address] [place] [phone] Morgan Paredes MD Pre-operative cardiovascular examination (Primary Dx); Mixed hyperlipidemia; Primary hypertension 05/30/2024 11:30 AM CDT Ancillary Procedure [address] [place] [phone] Coronary artery disease involving [place] coronary artery of [place] heart without angina pectoris; Primary hypertension 05/30/2024 10:30 AM CDT Ancillary Procedure [facility] [address] [place] [phone] Coronary artery disease involving [place] coronary artery of [place] heart without angina pectoris; Primary hypertension 05/30/2024 10:00 AM CDT Ancillary Procedure [facility] [address] [place] [address] Coronary artery disease involving [place] coronary artery of [place] heart without angina pectoris; Carotid bruit, unspecified laterality; Primary hypertension from Last 3 Months Surgical History Surgery Date Site/Laterality Comments CARDIAC CATHETERIZATION MELANOMA RESECTION CARDIAC CATHETERIZATION 07/07/2024 N/A Procedure: LEFT HEART CATHETERIZATION WITH CORONARY ANGIOGRAPHY AND WITH OR WITHOUT LEFT VENTRICULOGRAM [id number]; Surgeon: Morgan Paredes MD; Location: [facility]; Service: Cardiovascular; Laterality: N/A; Medical History Medical History Date Comments Coronary artery disease Hyperlipidemia Hypertension Family History Medical History Relation Name Comments Cancer Father Family history of malignant neoplasm - (Added by TW Conv) Coronary artery disease Father Fami ly history of coronary artery disease - (Added by TW Conv) Lung disease Father Family history of lung disease - (Added by TW Conv) Hypertension Mother Family history of hypertension - (Added by TW Conv) Stroke Mother Family history of cerebrovascular accident (CVA) - (Added by TW Conv) Cancer Sister Family history of malignant neoplasm - (Added by TW Conv) Diabetes Sister Relation Name Status Comments Father Mother Sister Social History Tobacco Use Types Packs/Day Years Used Date Smoking Tobacco: Former Smokeless Tobacco: Never Tobacco Cessation:Counseling Given: Not Answered Personal Safety Answer Date Recorded Have you ever been in or are you currently in a harmful physical or emotional relationship or is someone making you feel afraid or unsafe? 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 Gender Identity Male 07/12/2019 9:28 AM CDT Sexual Orientation Straight 07/12/2019 9: 15 AM CDT Obstetrics History Last Filed Vital Signs Vital Sign Reading Time Taken Comments Blood Pressure 121/62 07/07/2024 1:40 PM CDT Pulse 71 07/07/2024 1:40 PM CDT Temperature 36.5 C (97.7 F) 07/07/2024 10:43 AM CDT Respiratory Rate 20 07/07/2024 10:43 AM CDT Oxygen Saturation 97% 07/07/2024 1:30 PM CDT Inhaled Oxygen Concentration - - Weight 106.6 kg (235 lb) 07/07/2024 10:43 AM CDT Height 193 cm (6' 4) 07/07/2024 10:43 AM CDT Body Mass Index 28.61 07/07/2024 10:43 AM CDT Plan of Treatment Upcoming Encounters Date Type Department Care Team (Latest Contact Info) Description 07/18/2024 3:05 PM CDT Hospital Encounter [facility] [address] [place] [address] Lilli Welsh MD [address] [facility] [address] [place] [address] Coronary artery disease involving [place] coronary artery of [place] heart without angina pectoris; Abnormal findings on cardiac catheterization 07/18/2024 3:05 PM CDT - 07/18/2024 5:20 PM CDT Surgery [facility] [address] [place] [address] Lilli Welsh MD [address] [facility] [address] [place] [address] PCI VIDA MAJOR CORONARY [id number] - [id number] Health Maintenance Due Date Last Done Comments Albumin Creatinine Ratio, Urine 1945 Depression Screening 1945 Hemoglobin A1C 1945 Dilated Eye Exam 1945 Foot Exam 1945 DTaP/Tdap/Td Vaccine (1 - Tdap) 12/09/1954 Hepatitis B Screening 12/09/1961 Pneumococcal vaccine 65+ (1 of 2 - PCV) 12/09/1962 Zoster Vaccine (1 of 2) 12/09/1993 Abdominal Aortic Aneurysm (A AA) Screen 12/09/2008 Well Visit 65+ 12/09/2008 Lipid Panel 12/12/2022 12/12/2021 Covid-19 Vaccine (2023-2 5 season) 2023 10/28/2021, 06/11/2021, 11/29/2020, Additional history exists Influenza Vaccine (Season Ended) 2024 12/04/2021, 11/29/2020, 11/09/2019, Additional history exists eGFR 06/27/2025 06/27/2024, 11/03/2016 Fall Risk Assessment 07/07/2025 07/07/2024 Goals Goal Patient Goal Type Associated Problems Recent Progress Patient-Stated? Author Autogenera melany Goal Care Plan Autogenerated Problem No Wicho, Addison Campbell, remotely piloted vehicle controller Procedure Name Priority Date/Time Associated Diagnosis Comments LEFT HEART CATHETERIZATION WITH CORONARY ANGIOGRAPHY AND WITH AND WITHOUT LEFT VENTRICULOGRAM Routine 07/07/2024 11:55 AM CDT Abnormal stress test CBC WITH AUTO DIFFERENTIAL Routine 06/27/2024 8:28 AM CDT BASIC METABOLIC PANEL Routine 06/27/2024 8:28 AM CDT NM MPI SPECT (REST AND/OR STRESS) MULTIPLE STUDIES Schedule Routine, Read Routine (OP Routine) 05/30/2024 1:26 PM CDT Coronary artery disease involving [place] coronary artery of [place] heart without angina pectoris Primary hypertension TRANSTHORACIC ECHO (TTE) COMPLETE W DOPPLER/CF W CONTRAST W BUBBLE Routine 05/30/2024 11:22 AM CDT Coronary artery disease involving [place] coronary artery of [place] heart without angina pectoris Primary hypertension US CAROTIDS DUPLEX BILATERAL Schedule Routine, Read Routine (OP Routine) 05/30/2024 10:41 AM CDT Coronary artery disease involving [place] coronary artery of [place] heart without angina pectoris Carotid bruit, unspecified laterality Primary hypertension from Last 3 Months Results * LEFT HEART CATHETERIZATION WITH CORONARY ANGIOGRAPHY AND WITH AND WITHOUT LEFT VENTRICULOGRAM (07/07/2024 11:55 AM CDT) Anatomical Region Laterality Modality X-Ray Angiograph y Narrative 07/07/2024 7:29 PM CDT Table formatting from the original result was not included. CARDIAC CATHETERIZATION Patient: Brennon Bowman [id number] : 1945 Date of Service: 07/07/2024 FINAL PATIENT CLINICAL PROFILE: He is a pleasant 78 y.o. male that we are seeing for a left heart cath with following medical problems Visit Diagnosis Hyperlipidemia Hypertension Coronary artery disease s/p Stent in Mid LAD. 11/06/2016 ; Moderate stenosis of the left anterior descending artery with a highly significant iFR status post resolute drug-eluting stent. (2.75 x 15 resolute [place] stent ) Diabetes Type 2 History of Present Illness He is a 78 year male who came for a left heart cath. He has known history of coronary disease, dyslipidemia, hypertension, prediabetic. He has not had any evaluation done for number of years. He denies any chest pain. He does not do any formal exercises short of breath with mild activities no PND no orthopnea no syncope no swelling in the lower extremity. No palpitation. 05/30/2024 Patient came for follow-up. He had a stress test done today which shows partially reversible inferior wall nontransmural defect or medium-sized suggestive of ischemia. LVEF 66% mild inferior wall hypokinesis. Patient gets short of breath with mild level of activity which has slowly slowly worsening. No chest pain. No use of nitroglycerin. No fever or cough no bowel or bladder symptoms. 07/07/2024 Pt is here for a left heart cath for an abnormal stress test. REVIEW of SYSTEMS 11/18/2023 As per HPI. Review of all other systems were done and negative. Past Medical History Past Medical History: Diagnosis Date Coronary artery disease Hyperlipidemia Hypertension Past Surgical History Past Surgical History: Procedure Laterality Date CARDIAC CATHETERIZATION MELANOMA RESECTION Family History Family History Problem Relation Age of Onset Hypertension Mother Family history of hypertension - (Added by TW Conv) Stroke Mother Family history of cerebrovascular accident (CVA) - (Added by TW Conv) Coronary artery disease Father Family history of coronary artery disease - (Added by TW Conv) Lung disease Father Family history of lung disease - (Added by TW Conv) Cancer Father Family history of malignant neoplasm - (Added by TW Conv) Cancer Sister Family history of malignant neoplasm - (Added by TW Conv) Diabetes Sister Social History Social History Tobacco Use Smoking status: Former Smokeless tobacco: Never Substance and Sexual Activity Drug use: Not on file Sexual activity: Not on file Alcohol Use: Not on file Allergies No Known Allergies Current Outpatient Medications on File Prior to Encounter Medication Sig Dispense Refill albuterol HFA (PROVENTIL HFA,VENTOLIN HFA,PROAIR HFA) 90 mcg/actuation inhaler 2 puffs daily as needed allopurinoL (ZYLOPRIM) 100 mg tablet Take 1 tablet (100 mg total) by mouth as needed aspirin 81 mg chewable tablet Take 1 tablet (81 mg total) by mouth daily 30 tablet 11 cetirizine (ZyrTEC) 10 mg tablet Take 1 tablet (10 mg total) by mouth daily ezetimibe (ZETIA) 10 mg tablet take 1 tablet daily finasteride (PROSCAR) 5 mg tablet TAKE 1 TABLET BEDTIME ipratropium-albuteroL (DUO-NEB) 0.5-2.5 mg/3 mL nebulizer solution USE 1 VIAL BY NEBULIZATION ROUTE EVERY 6 HOURS NEEDED levothyroxine (SYNTHROID) 150 mcg tablet daily. lisinopril (PRINIVIL,ZESTRIL) 2.5 mg tablet daily. montelukast (SINGULAIR) 10 mg tablet daily. lmcnqkrwbsgi-sra-jmgu-FA-vit K 18 mg iron-400 mcg-25 mcg tablet daily. naproxen (NAPROSYN) 500 mg tablet TAKE 1 TABLET BY MOUTH TWICE A DAY NEEDED FOR JOINT INFLAMMATION FROM GOUT nitroglycerin (NITROSTAT) 0.[address] 1 tablet (0.4 mg total) under the tongue as needed for chest pain 100 tablet 0 omega-3/dha/epa/dpa/fish oil (OMEGA-3 2100 ORAL) Take by mouth OneTouch Ultra Test strip TAKE 1 MISCELLANEOUS STRIP EVERY MORNING simvastatin (ZOCOR) 40 mg tablet daily. tamsulosin (FLOMAX) 0.4 mg extended release capsule Take 1 capsule (0.4 mg total) by mouth daily TRELEGY ELLIPTA 100-62.5-25 mcg blister with device INL 1 PUFF PO AT THE SAME TIME QD 1 UNABLE TO FIND once a week Med Name: vitamin D3 50mcg No current facility-administered medications on file prior to encounter. Objective Vitals & Physical Exam Blood pressure 121/62, pulse 71, temperature 36.5 C (97.7 F), temperature source Oral, resp. rate 20, height 193 cm (6' 4), weight 106.6 kg (235 lb), SpO2 97%. GEN: pleasant in NAD; alert, comfortable HENT: NCAT, MMM, anicteric Neck: no trauma, no JVD CVS: RRR, S1S2, no rubs/murmurs/gallops PULM: non-labored, CTAB, good inspiratory effort ABD: soft, not tender to palpation EXT: equal radial pulses, no edema Neuro: motor and sensation grossly intact Skin: warm, dry, no cyanosis Cardiac Studies Personally reviewed in clinic by myself Nuclear stress test 05/30/2024 Pharmaceutical Myocardial perfusion imaging is abnormal. Partly reversible inferior wall nontransmural defect of medium size suggestive of ischemia. LV wall motion abnormal with mild inferior wall hypokinesis. LVEF = 66% No chest pain during stress and no ecg changes. There are no previous studies available for comparison at this facility. Echocardiogram 05/30/2024 CONCLUSIONS: 1. Normal left ventricular size based on volume index. Concentric LV remodeling. Normal left ventricular systolic function. The Ejection Fraction (Urena's) is measured at 57 %. Grade I diastolic dysfunction (normal LA pressure). The average global longitudinal strain is normal. 2. There are no LV regional wall motion abnormalities. 3. Normal right ventricular size. Normal right ventricular systolic function. 4. Agitated saline bubble study is negative for intracardiac shunt at rest and post-Valsalva. 5. Mild mitral annular calcification. Mild mitral valve regurgitation. No stenosis present. 6. Trace aortic valve regurgitation. 7. Mildly thickened tricuspid valve. Mild tricuspid regurgitation. No tricuspid valve stenosis. 8. Normal pulmonic valve structure. No pulmonic regurgitation. No pulmonic valve stenosis present. 9. Normal pericardium without pericardial effusion. No pericardial effusion. Cardiac Cath + PCI 11/06/16 DIAGNOSTIC IMPRESSIONS 1. Moderate stenosis of the left anterior descending artery with a highly significant iFR status post resolute drug-eluting stent. (2.75 x 15 resolute [place] stent ) I reviewed the following labs and discussed with the patient. Lab Results Component Value Date GLUCOSE 112 (H) 06/27/2024 CALCIUM 9.4 06/27/2024 SODIUM 141 06/27/2024 POTASSIUM 4.2 06/27/2024 CO2 29 06/27/2024 CHLORIDE 106 06/27/2024 BUNSER 17 06/27/2024 CREATININE 1.12 06/27/2024 Lab Results Component Value Date WBC 8.8 06/27/2024 HGB 13.4 06/27/2024 HCT 40.6 06/27/2024 MCV 95.5 06/27/2024 LABPLAT 208 06/27/2024 Nuclear stress test 05/30/2024 Pharmaceutical Myocardial perfusion imaging is abnormal. Partly reversible inferior wall nontransmural defect of medium size suggestive of ischemia. LV wall motion abnormal with mild inferior wall hypokinesis. LVEF = 66% No chest pain during stress and no ecg changes. There are no previous studies available for comparison at this facility. Assessment Recommendations 1. Coronary disease he is on aspirin 80 mg day. Today stress test shows partially reversible inferior wall nontransmural defect a medium-sized with LVEF 66%. Shortness breath could be angina equivalent. Patient is on optimal medical treatment will recommend a left heart cardiac catheterization patient is agreeable.pt understand the risk and benefit of the cardiac cath procedure including risk of complications from sedation ,contrast induced allergic reaction and renal dysfunction, myocardial infarction ,stroke, embolic phenomenon, bleeding , infection ,dissection, perforation or occlusion of vessel, 2. Hypertension the blood pressure is controlled on the current medical treatment he is on lisinopril 2.5 mg a day low-salt diet 3. Dyslipidemia he is on Zetia 10 mg a day and simvastatin 40 mg daily will get a lipid profile no side effects noted next 4. Prediabetic he is only on a low sugar diet. 5. Diastolic heart failure will get an echocardiogram with Doppler will obtain the labs from Dr. Nate WALKER office. 6. Carotid disease patient has multiple atherosclerotic risk factors he has left carotid bruit will get carotid Doppler. Detailed consent was obtained. The risk and benefit of the procedure were discussed with the patient. The patient is undergoing left heart catheterization. Pt labs were reviewed prior to the procedure. PROCEDURE: 1. The patient was brought to the cardiac catheterization laboratory after informed consent. 2. I provided direct face to face monitoring for conscious sedation administered by independently trained nurse using 12.5 mcg of fentanyl and 0.5 mg of versed. I directly observed the patient for 120 minutes. 3. The right radial artery was prepped and draped under aseptic condition. 4. 2% Lidocaine was used for local anesthesia. 5. A 5F [place] sheath was placed in the right radial artery using a short Cook needle with the modified Seldinger technique without any difficulty. 6. A 5F / 110-cm long Samy catheter 3.5 was placed over the Versacore wire in the ascending aorta without any difficulty. 6. Left ventricular hemodynamics were obtained and pullback pressure was obtained. 7. This catheter was used to cannulate the left coronary artery and images were obtained in different views. Same catheter was used to attempt to cannulate the right coronary artery , failed as RCA origin is from the upper end of Right cusp. We tried JR 4.0 catheter , pt developed spasm of radial artery and we could not advance the catheter. We aborted the procedure. Non selective image of RCA taken. 8. This catheter was removed over the versacore/ J-wire. No complications noted. 9. A TR-Band was applied to achieve patent hemostasis. 10. Medication used NTG 200 mcg + Verapamil 2.5 mg intraarterially and 5000 unit of heparin.given in Ascending aorta. RESULTS: Left Heart Hemodynamics: LV not crossed. Angiography: Left Ventriculogram:Not done. Selective Coronary Arteriography: Left Coronary System: 1. The left main coronary artery is patent with mild l calcification noted. 2. The circumflex coronary artery is non dominant vessel. Mildly calcified vessel. Diffuse atherosclerotic plaque and luminal irregularity noted in the left circumflex vessel with a large marginal branch patent but luminal irregularity noticed. 3. The right coronary artery is a dominant vessel. We can not cannulate selectively. Nonselective image shows it is a dominant vessel and patent. Detailed evaluation of the right coronary artery could not be done. 4. Th Left Anterior descending artery ; proximal LAD is calcified vessel patent with luminal irregularity. Mid LAD has a stent which appears to have significant stenosis has a stent restenosis. Distal LAD is patent with luminal irregularity. Diagonal vessels are patent. DIAGNOSTIC IMPRESSIONS: 1. Stent restenosis of the mid LAD. With diffusely calcified coronary vessels and luminal irregularities. 2. LVEDP could not be obtained as aortic valve was not crossed THERAPEUTIC RECOMMENDATIONS: I have discussed with Dr. Welsh. Patient needs a IFR of the LAD. He is agreeable. At the same time patient right coronary artery will be approached via the femoral artery approach for further evaluation. I have discussed with the patient and the also they all are agreeable. No complication noted. The patient will follow-up with me in two- three weeks. I have discussed the findings in detail with the family. No complications were noted. Right radial artery arteriotomy site instructions were given to the patient. No complications were Noted. Pt remained hemodynamically stable. [id number] I personally performed or supervised the procedure reported above and was physically present during the entire procedure. This note was written using a voice recognition system hardware device. Please note there may be variance in spelling, deedee, and syntax because of the voice recognition system hardware. Therefore, not every sentence has been reviewed in its entirety. If there are any concerns about verbage above please contact me at [phone]. us Morgan Paredes MD CV CARDIAC CATH PROCEDURES Fin al Result * CBC with auto differential (06/27/2024 8:28 AM CDT) WBC 8.8 3.8 - 10.8 Thousand/u L [facility] RBC, POC 4.25 4.20 - 5.80 Million/uL [facility] Hgb 13.4 13.2 - 17.1 g/dL [facility] Hct 40.6 38.5 - 50.0 % [facility] MCV 95.5 80.0 - 100.0 fL [facility] MCH 31.5 27.0 - 33.0 pg [facility] MCHC 33.0 32.0 - 36.0 g/dL [facility] Comment: For adults, a slight decrease in the calculated MCHC value (in the range of 30 to 32 g/dL) is most likely not clinically significant; however, it should be interpreted with caution in correlation with other red cell parameters and the patient's clinical condition. Rdw 12.1 11.0 - 15.0 % [facility] Platelets 208 140 - 400 Thousand/u L [facility] MPV 9.7 7.5 - 12.5 fL [facility] Neutrophils, abs 5,729 1,500 - 7,800 cells/uL [facility] Lymphocytes, abs 1,751 850 - 3,900 cells/uL [facility] Monocyte abs 915 200 - 950 cells/uL [facility] Eosinophils, abs 361 15 - 500 cells/uL [facility] Basophils, abs 44 0 - 200 cells/uL [facility] Neutrophils 65.1 % [facility] Lymphocyte pct 19.9 % [facility] Monocytes 10.4 % [facility] Eosinophils 4.1 % [facility] Basophils 0.5 % [facility] 06/27/2024 8:28 AM CDT 06/27/2024 8:29 AM CDT Narrative [facility] - 06/28/2024 2:41 AM CDT FASTING:YES FASTING: YES us Morgan Paredes MD LAB BLOOD ORDERABLES Final Res ult [facility] [address] [address] [place] [address] * (ABNORMAL) Basic metabolic panel (06/27/2024 8:28 AM CDT) Pathologist [facility] Glucose 112(H) 65 - 99 mg/dL [facility] Comment: Fasting reference interval For someone without known diabetes, a glucose value between 100 and 125 mg/dL is consistent with prediabetes and should be confirmed with a follow-up test. BUN 17 7 - 25 mg/dL [facility] Creatinine 1.12 0.70 - 1.22 mg/dL [facility] eGFR 66 > OR = 60 mL/min/1.7 3m2 [facility] BUN/creat ratio SEE NOTE: 6 - 22 (calc) [facility] Comment: Not Reported: BUN and Creatinine are within reference range. Sodium 141 135 - 146 mmol/L [facility] Potassium, pl 4.2 3.5 - 5.3 mmol/L [facility] Chloride 106 98 - 110 mmol/L [facility] CO2 29 20 - 32 mmol/L [facility] Calcium 9.4 8.6 - 10.3 mg/dL [facility] 06/27/2024 8:28 AM CDT 06/27/2024 8:29 AM CDT Narrative [facility] - 06/28/2024 2:41 AM CDT FASTING:YES FASTING: YES us Morgan Paredes MD LAB BLOOD ORDERABLES Final Res [place] [address] [address] [facility] [place] [address] * NM MPI SPECT (Rest and/or Stress) Multiple Studies (05/30/2024 1:26 PM CDT) Anatomical Region Laterality Modality Body N/A Electrocardiogra phy Narrative 06/01/2024 7:20 AM CDT Table formatting from the original result was not included. [place] [facility] Heart & Vascular [address] [address] Nuclear MPI Pharmaceutical Study Patient Name: Brennon Bowman Gender: male : 1945 Date of Study: 05/30/24 Ordering Provider: Morgan Paredes MD Primary care Provider: Kermit Sullivan MD Pt BMI: 28 Examination Myocardial Perfusion Imaging: Pharmacologic/Spect with Gated Imaging and Ejection Fraction Measurement. Cardiac History CAD . Reason for Examination CAD. Cardiac Risk Factors hypertension, dyslipidemia, and diabetes mellitus. Stress Procedure Baseline or Resting EKG Normal Pharmaceutical Parameters: Chemical Test duration: 5 min 38 sec. Baseline BP: 153 / 84 mm Hg Baseline HR: 78 /min Peak BP: 153 / 84 mm Hg Peak HR: 102 /min 72 % of PMHR HR Response to Pharmaceutical: Normal BP Response to Pharmaceutical: Normal Functional Capacity: below average ST changes: None Symptoms during Pharmaceutical Injection : short of breath, resolved during recovery Reasons for Termination: End of Protocol Nuclear Procedure Radiopharmaceutical: 10.5 mCi Tc-99M Tetrofosmin IV for rest and 32.4 mCi Tc-99M Tetrofosmin IV for stress. Protocol: Standard myocardial perfusion images were obtained after resting injection of Tc-99M Tetrofosmin intravenously. Resting images were obtained after a 30 minutes delay. Subsequently, an intravenous infusion of 0.4 mg/5ml Regadenoson given over a 10 second injection was given under the supervision of the physician. Tc-99M tetrofosimin was injected intravenously 10-20 seconds post lexiscan/saline flush injection and standard myocardial images were obtained after a 30 minute delay. Images are obtained with a solid state camera. Rest images are obtained in the upright position and stress images are obtained in both upright and supine positions. The overall quality of the study is good. Motion correction was not performed. Regadenoson MPI Stage Time BP HR Sitting 1244 53/84 78 Regadenoson 1252 104/65 99 Recovery 1256 126/86 96 Images Interpretation Gated Spect imaging reveals a medium sized partly reversible perfusion defect of moderate severity in the inferior wall. LV wall motion abnormal with mild inferior wall hypokinesis. LV wall function normal with LVEF of 66%. No LV dilatation present. No transischemic dilatation present. Impression Pharmaceutical Myocardial perfusion imaging is abnormal. Partly reversible inferior wall nontransmural defect of medium size suggestive of ischemia. LV wall motion abnormal with mild inferior wall hypokinesis. LVEF = 66% No chest pain during stress and no ecg changes. There are no previous studies available for comparison at this facility. Recommendation Left Cardiac Catherization. Finding discussed with the patient personally. Stress myocardial perfusion imaging has a known 10-15% false negative rate and a small (5-10%) false positive rate. I have personally supervised and interpreted this study. I have reviewed and/or edited and agree with the written comments contained within the report. Morgan Paredes MD [facility] PROCEDURES Final Result * TRANSTHORACIC ECHO (TTE) COMPLETE W DOPPLER/CF W CONTRAST W BUBBLE (05/30/2024 11:22 AM CDT) Anatomical Region Laterality Modality Ultrasound 05/30/2024 9:48 AM CDT Narrative 05/30/2024 8:06 PM CDT Heart & Vascular [address], [address] [place] [address] Transthoracic Echocardiographic Report Patient Name: BRENNON BOWMAN R : 1945 (78y 5m) Gender: M Study Date: 05/30/2024 09:48:33 AM Ht(Inch): 76 Wt(Lb): 234.99 BSA: 2.39 Hospital Personnel Director: Rasheed Chacon,[facility] [place] [facility] [place] Provider: MORGAN PAERDES Heart Rate: 90 BMI: 28.6 BP: 124 / 73 Ref Provider: MORGAN PAREDES PROCEDURES: Echocardiographic Report: Transthoracic complete echo with strain imaging and contrast, 2D, spectral and tissue Doppler, color flow Doppler, M-mode. Additional Procedures: Agitated saline bubble study. Contrast: Contrast Enhancement was Employed: After initial imaging due to sub- optimal quality related to co-morbidity defined by patient's body habitus and due to suboptimal image quality with inadequate visualization of at least 2 of 16 LV wall segments in any view after initial imaging. Perflutren contrast was administered using the volume necessary to obtain adequate images. 1.1 ml Optison Administered, (1.9 ml wasted) & NS Bubble Study. Technically difficult study due to: Poor acoustic windows. INDICATIONS: I25.10 Atherosclerotic heart disease of [place] coronary artery without angina pectoris and I10 Essential (primary) hypertension. CONCLUSIONS: 1. Normal left ventricular size based on volume index. Concentric LV remodeling. Normal left ventricular systolic function. The Ejection Fraction (Urena's) is measured at 57 %. Grade I diastolic dysfunction (normal LA pressure). The average global longitudinal strain is normal. 2. There are no LV regional wall motion abnormalities. 3. Normal right ventricular size. Normal right ventricular systolic function. 4. Agitated saline bubble study is negative for intracardiac shunt at rest and post-Valsalva. 5. Mild mitral annular calcification. Mild mitral valve regurgitation. No stenosis present. 6. Trace aortic valve regurgitation. 7. Mildly thickened tricuspid valve. Mild tricuspid regurgitation. No tricuspid valve stenosis. 8. Normal pulmonic valve structure. No pulmonic regurgitation. No pulmonic valve stenosis present. 9. Normal pericardium without pericardial effusion. No pericardial effusion. ATTESTATION: I have personally reviewed and interpreted this study without fellow or resident. - DISCLAIMER: The study images and the final report will be retained in the patient chart by the Echo Laboratory for the legally required time period. This chart constitutes the legal record of any testing performed. FINDINGS: Left Ventricle: Normal left ventricular size based on volume index. Concentric LV remodeling. Normal left ventricular systolic function. The Ejection Fraction (Urena's) is measured at 57 %. Grade I diastolic dysfunction (normal LA pressure). The average global longitudinal strain is normal. The LV global strain is: -19.7 %. Regional Wall Motion: There are no LV regional wall motion abnormalities. Right Ventricle: Normal right ventricular size. Normal right ventricular systolic function. Left Atrium: The left atrium is normal in size. Right Atrium: The right atrium is normal in size. Atrial Septum: Normal interatrial septum. Agitated saline bubble study is negative for intracardiac shunt at rest and post-Valsalva. Mitral Valve: Mild mitral annular calcification. Mild mitral valve regurgitation. No stenosis present. Aortic Valve: Trileaflet aortic valve. Trace aortic valve regurgitation. No aortic valve stenosis. The mean transaortic gradient is 4 mmHg. The aortic valve area by the continuity equation (using VTI) is 3.41 cm2. Aortic valve dimensionless index is 0.81. Tricuspid Valve: Mildly thickened tricuspid valve. Mild tricuspid regurgitation. No tricuspid valve stenosis. Pulmonic Valve: Normal pulmonic valve structure. No pulmonic regurgitation. No pulmonic valve stenosis present. Pericardium: Normal pericardium without pericardial effusion. No pericardial effusion. Aorta: Normal aortic root. Normal aortic root size at sinuses of Valsalva. Normal aortic root size when indexed. The ascending aorta is normal in size when indexed. IVC: IVC is normal in size. The IVC was <2.1 cm and collapsibility >50%. (est. RA pressure 0-5 mmHg). PASP: Unable to determine PASP due to inadequate TR jet, but the mean PA pressure appears normal based on the PV acceleration time. MEASUREMENTS: 2D/MM Value Range Doppler Value Range LVIDd 2D 4.12 cm [ 4.20 - 5.80 ] AV Peak Clifford 1.5 m/s [ 1.0 - 1.7 ] LVIDs 2D 2.76 cm [ 2.50 - 4.00 ] AV Peak PG 9.00 mmHg IVSd 2D 1.12 cm [ 0.60 - 1.00 ] AV Mean PG 4 mmHg LVPWd 2D 1.12 cm [ 0.60 - 1.00 ] AV VTI 30.7 cm LV Thickness Ratio 1.0 LVOT Peak Clifford 1.1 m/s [ 0.7 - 1.1 ] LV FS 2D 33.12 % [ 25.00 - 43.00 ] LVOT Peak PG 4.84 mmHg LV Mass 2D 158.69 g LVOT Mean PG 2 mmHg LV Mass Index 2D 66.40 g/m2 LVOT VTI 24.8 cm RWT 0.54 LVOT Diam 2.32 cm EDV Mod BP 120.04 ml [ 62.00 - 150.00 ] ELIAZAR VTI 3.41 cm2 LV EDV Index 50.23 ml/m2 LVOT/AV VTI 0.81 - Dimensionless index (DVI) ESV Mod BP 51.97 ml [ 21.00 - 61.00 ] MV E Peak Clifford 0.8 m/s [ 0.6 - 1.3 ] EF Mod BP 57 % [ 52 - 72 ] MV A Peak Clifford 1.1 m/s [ 1.0 - 1.2 ] LV GLS -19.7 % [ -25.0 - -18.0 ] MV E/A 0.7 ratio [ 0.8 - 1.5 ] LA Dimension 2D 3.76 cm [ 3.00 - 4.00 ] MV Decel Time 169.99 msec [ 104.00 - 258.00 ] LA Length 4C 6.02 cm Med E` Clifford 7.5 cm/sec [ 8.0 - 25.0 ] LA Length 2C 6.62 cm Lat E` Clifford 11.1 cm/sec [ 10.0 - 25.0 ] LA Volume BP 72.21 ml Average E/E` 8.60 LA Volume Index 30.21 ml/m2 [ 16.00 - 34.00 ] RV S` 12.15 cm/sec RV Base Dimen 2D 2.3 cm [ 2.5 - 4.2 ] PV Peak Clifford 1.1 m/s [ 0.4 - 0.8 ] TAPSE 1.88 cm [ 1.71 - 5.00 ] PV Peak PG 4.84 mmHg RA Volume 30.26 ml RA Volume Index 12.66 ml/m2 IVC Diam 1.39 cm AoR Diam 2D 3.50 cm [ 3.10 - 3.70 ] Ao Root Index 1.46 cm/m2 [ 1.00 - 2.00 ] Asc Ao Diam 2D 3.48 cm Asc Ao Index 1.46 cm/m2 Electronically Signed By: Morgan Paredes MD 05/30/2024 8:06:43 PM CDT Procedure Note Morgan Praedes MD - 05/30/2024 [facility], [address] [place] [address] Transthoracic Echocardiographic Report Patient Name: BRENNON BOWMAN R : 1945 (78y 5m) Gender: M Study Date: 05/30/2024 09:48:33 AM Ht(Inch): 76 Wt(Lb): 234.99 BSA: 2.39 Hospital Personnel Director: Rasheed Chacon,[facility] Location[place] [facility] [place] Order Provider:MORGAN PAREDES Heart Rate: 90 BMI: 28.6 BP: 124 / 73 Ref Provider: MORGAN PAREDES PROCEDURES: Echocardiographic Report: Transthoracic complete echo with strain imagingand contrast, 2D, spectral and tissue Doppler, color flow Doppler, M-mode. Additional Procedures: Agitated saline bubble study. Contrast: Contrast Enhancement was Employed: After initial imaging due tosub- optimal quality related to co-morbidity defined by patient's body habitus and dueto suboptimal image quality with inadequate visualization of at least 2 of 16 LV wallsegments in any view after initial imaging. Perflutren contrast was administered using thevolume necessary to obtain adequate images. 1.1 ml Optison Administered, (1.9 mlwasted) & NS Bubble Study. Technically difficult study due to: Poor acoustic windows. INDICATIONS: I25.10 Atherosclerotic heart disease of [place] coronary artery withoutangina pectoris and I10 Essential (primary) hypertension. CONCLUSIONS: 1. Normal left ventricular size based on volume index. Concentric LVremodeling. Normal left ventricular systolic function. The Ejection Fraction (Urena's) ismeasured at 57 %. Grade I diastolic dysfunction (normal LA pressure). The average globallongitudinal strain is normal. 2. There are no LV regional wall motion abnormalities. 3. Normal right ventricular size. Normal right ventricular systolicfunction. 4. Agitated saline bubble study is negative for intracardiac shunt at restand post-Valsalva. 5. Mild mitral annular calcification. Mild mitral valve regurgitation. Nostenosis present. 6. Trace aortic valve regurgitation. 7. Mildly thickened tricuspid valve. Mild tricuspid regurgitation. Notricuspid valve stenosis. 8. Normal pulmonic valve structure. No pulmonic regurgitation. No pulmonicvalve stenosis present. 9. Normal pericardium without pericardial effusion. No pericardialeffusion. ATTESTATION: I have personally reviewed and interpreted this study without fellow orresident. - DISCLAIMER: The study images and the final report will be retained in the patientchart by the Echo Laboratory for the legally required time period. This chart constitutesthe legal record of any testing performed. FINDINGS: Left Ventricle: Normal left ventricular size based on volume index.Concentric LV remodeling. Normal left ventricular systolic function. The EjectionFraction (Urena's) is measured at 57 %. Grade I diastolic dysfunction (normal LA pressure).The average global longitudinal strain is normal. The LV global strain is: -19.7 %. Regional Wall Motion: There are no LV regional wall motionabnormalities. Right Ventricle: Normal right ventricular size. Normal right ventricularsystolic function. Left Atrium: The left atrium is normal in size. Right Atrium: The right atrium is normal in size. Atrial Septum: Normal interatrial septum. Agitated saline bubble study isnegative for intracardiac shunt at rest and post-Valsalva. Mitral Valve: Mild mitral annular calcification. Mild mitral valveregurgitation. No stenosis present. Aortic Valve: Trileaflet aortic valve. Trace aortic valve regurgitation.No aortic valve stenosis. The mean transaortic gradient is 4 mmHg. The aortic valve areaby the continuity equation (using VTI) is 3.41 cm2. Aortic valve dimensionlessindex is 0.81. Tricuspid Valve: Mildly thickened tricuspid valve. Mild tricuspidregurgitation. No tricuspid valve stenosis. Pulmonic Valve: Normal pulmonic valve structure. No pulmonicregurgitation. No pulmonic valve stenosis present. Pericardium: Normal pericardium without pericardial effusion. Nopericardial effusion. Aorta: Normal aortic root. Normal aortic root size at sinuses of Valsalva.Normal aortic root size when indexed. The ascending aorta is normal in size whenindexed. IVC: IVC is normal in size. The IVC was <2.1 cm and collapsibility >50%.(est. RA pressure 0-5 mmHg). PASP: Unable to determine PASP due to inadequate TR jet, but the mean PApressure appears normal based on the PV acceleration time. MEASUREMENTS: 2D/MM Value Range DopplerValue Range LVIDd 2D 4.12 cm [ 4.20 - 5.80 ] AV Peak Vel1.5 m/s [ 1.0 - 1.7 ] LVIDs 2D 2.76 cm [ 2.50 - 4.00 ] AV Peak PG9.00 mmHg IVSd 2D 1.12 cm [ 0.60 - 1.00 ] AV Mean PG4 mmHg LVPWd 2D 1.12 cm [ 0.60 - 1.00 ] AV VTI30.7 cm LV Thickness Ratio 1.0 LVOT Peak Vel1.1 m/s [ 0.7 - 1.1 ] LV FS 2D 33.12 % [ 25.00 - 43.00 ] LVOT Peak PG4.84 mmHg LV Mass 2D 158.69 g LVOT Mean PG2 mmHg LV Mass Index 2D 66.40 g/m2 LVOT VTI24.8 cm RWT 0.54 LVOT Diam2.32 cm EDV Mod BP 120.04 ml [ 62.00 - 150.00 ] ELIAZAR VTI3.41 cm2 LV EDV Index 50.23 ml/m2 LVOT/AV VTI0.81 - Dimensionless index (DVI) ESV Mod BP 51.97 ml [ 21.00 - 61.00 ] MV E Peak Vel0.8 m/s [ 0.6 - 1.3 ] EF Mod BP 57 % [ 52 - 72 ] MV A Peak Vel1.1 m/s [ 1.0 - 1.2 ] LV GLS -19.7 % [ -25.0 - -18.0 ] MV E/A0.7 ratio [ 0.8 - 1.5 ] LA Dimension 2D 3.76 cm [ 3.00 - 4.00 ] MV Decel Bhmw529.99 msec [ 104.00 - 258.00 ] LA Length 4C 6.02 cm Med E` Vel7.5 cm/sec [ 8.0 - 25.0 ] LA Length 2C 6.62 cm Lat E` Vel11.1 cm/sec [ 10.0 - 25.0 ] LA Volume BP 72.21 ml Average E/E`8.60 LA Volume Index 30.21 ml/m2 [ 16.00 - 34.00 ] RV S`12.15 cm/sec RV Base Dimen 2D 2.3 cm [ 2.5 - 4.2 ] PV Peak Vel1.1 m/s [ 0.4 - 0.8 ] TAPSE 1.88 cm [ 1.71 - 5.00 ] PV Peak PG4.84 mmHg RA Luvlcp27.26 ml RA Volume Index12.66 ml/m2 IVC Diam1.39 cm AoR Diam 2D 3.50 cm [ 3.10 - 3.70 ] Ao Root Index 1.46 cm/m2 [ 1.00 - 2.00 ] Asc Ao Diam 2D3.48 cm Asc Ao Index1.46 cm/m2 Electronically Signed By: Morgan Paredes MD 05/30/2024 8:06:43 PM CDT us Morgan Paredes MD CV ECHO PROCEDURES Final Resul t * US Carotids Duplex Bilateral (05/30/2024 10:41 AM CDT) Anatomical Region Laterality Modality Vascular Bilateral Ultrasound 05/30/2024 9:49 AM CDT Narrative 05/30/2024 7:56 PM CDT [facility], [address] [place] [address] Carotid Duplex Report Patient Name: BRENNON BOWMAN R : 1945 (78y 5m) Gender: M Study Date: 05/30/2024 09:49:19 AM Hospital Personnel Director: Lennie Sharma RVT [place] [facility] [place] Provider: MORGAN PAREDES BP: 124/83 Quality: Adequate Ref Provider: MORGAN PAREDES PROCEDURES: Arterial Report: [id number]: Duplex scan of extracranial arteries; complete bilateral study. INDICATIONS: I25.10 Atherosclerotic heart disease of [place] coronary artery without angina pectoris, R09.89 Other specified symptoms and signs involving the circulatory and respiratory systems, and I10 Essential (primary) hypertension. VASCULAR HISTORY: No prior vascular history. Risk factors include: diabetes, hyperlipidemia and coronary artery disease. CONCLUSIONS: CCA: No stenosis of the right or left common carotid arteries. ICA: Mild stenosis of the right and left internal carotid arteries (<50% stenosis). ECA: Mild stenosis of the right external carotid artery (<50% stenosis). No stenosis of the left external carotid artery. Vertebrals: Antegrade flow of the right and left vertebral arteries. [employer] MEASUREMENTS: Right PSV (cm/s) Right EDV (cm/s) Left PSV (cm/s) Left EDV (cm/s) CCA Prx 120 23 112 25 CCA Dst 96 21 62 10 ICA Prx 77 18 86 26 ICA Mid 82 25 98 38 ICA Dst 90 27 98 37 ECA 90 13 98 12 ICA/CCA Ratio 0.8 0.9 Vertebral 34 4 35 12 FINDINGS: Blood Pressure: Right BP: 124/83 mmHg. Left blood pressure could not be obtained due to IV site. Right CCA: The right common carotid artery is normal. Right ICA: Internal Carotid Artery Plaque Characteristics: irregular and heterogenous. Mild atherosclerosis (<50% stenosis) of the proximal internal carotid artery. Right ECA: Mild atherosclerosis of the external carotid artery (<50% stenosis). Right Vert: Normal antegrade flow of the vertebral artery. Left CCA: The left common carotid artery is normal. Left ICA: Internal Carotid Artery Plaque Characteristics: irregular and heterogenous. Mild atherosclerosis (<50% stenosis) of the proximal internal carotid artery. Left ECA: The right external carotid artery is normal. Left Vert: Normal antegrade flow of the vertebral artery. COMPARISONS: No prior study. ATTESTATION: I have reviewed and interpreted the pertinent images and measurements of this study. I attest to the conclusions in the final report that is provided above. DISCLAIMER: The study images and the final report will be retained in the patient chart by the Vascular Laboratory for the legally required time period. This chart constitutes the legal record of any testing performed. ICA STENOSIS CRITERIA: Degree of Stenosis, % ICA PSV, cm/sec Plaque Estimate, % ICA/CCA Ratio ICA EDV, cm/sec Normal <180 None <2.0 <40 <50 <180 <50 <2.0 <40 50-69 180-230 >50 2.0-4.0 40-100 >70 but less than near occlusion >230 >50 >4.0 >100 Near Occlusion High, low, or undetectable Visible Variable Variable Total Occlusion Undetectable Visible, no detectable lumen Not applicable Not applicable Electronically Signed By: Morgan Paredes MD 05/30/2024 7:56:18 PM CDT Electronically Signed By: Morgan Paredes MD 05/30/2024 7:56:18 PM CDT Carotid Arteries Procedure Note Morgan Paredes MD - 05/30/2024 [facility], [address] [place] [address] Carotid Duplex Report Patient Name: BRENNON BOWMAN R : 1945 (78y 5m) Gender: M Study Date: 05/30/2024 09:49:19 AM Hospital Personnel Director: Lennie Sharma RVT [place] [place] Provider: MORGAN PAREDES BP: 124/83 Quality: Adequate Ref Provider: MORGAN PAREDES PROCEDURES: Arterial Report: [id number]: Duplex scan of extracranial arteries; completebilateral study. INDICATIONS: I25.10 Atherosclerotic heart disease of [place] coronary artery withoutangina pectoris, R09.89 Other specified symptoms and signs involving the circulatory andrespiratory systems, and I10 Essential (primary) hypertension. VASCULAR HISTORY: No prior vascular history. Risk factors include: diabetes, hyperlipidemiaand coronary artery disease. CONCLUSIONS: CCA: No stenosis of the right or left common carotid arteries. ICA: Mild stenosis of the right and left internal carotid arteries (<50%stenosis). ECA: Mild stenosis of the right external carotid artery (<50% stenosis).No stenosis of the left external carotid artery. Vertebrals: Antegrade flow of the right and left vertebral arteries. [place] [employer] MEASUREMENTS: Right PSV (cm/s) Right EDV (cm/s) Left PSV (cm/s) Left EDV (cm/s) CCA Prx 120 23 112 25 CCA Dst 96 21 62 10 ICA Prx 77 18 86 26 ICA Mid 82 25 98 38 ICA Dst 90 27 98 37 ECA 90 13 98 12 ICA/CCA Ratio 0.8 0.9 Vertebral 34 4 35 12 FINDINGS: Blood Pressure: Right BP: 124/83 mmHg. Left blood pressure could not beobtained due to IV site. Right CCA: The right common carotid artery is normal. Right ICA: Internal Carotid Artery Plaque Characteristics: irregular andheterogenous. Mild atherosclerosis (<50% stenosis) of the proximal internal carotidartery. Right ECA: Mild atherosclerosis of the external carotid artery (<50%stenosis). Right Vert: Normal antegrade flow of the vertebral artery. Left CCA: The left common carotid artery is normal. Left ICA: Internal Carotid Artery Plaque Characteristics: irregular andheterogenous. Mild atherosclerosis (<50% stenosis) of the proximal internal carotidartery. Left ECA: The right external carotid artery is normal. Left Vert: Normal antegrade flow of the vertebral artery. COMPARISONS: No prior study. ATTESTATION: I have reviewed and interpreted the pertinent images and measurements ofthis study. I attest to the conclusions in the final report that is provided above. DISCLAIMER: The study images and the final report will be retained in the patientchart by the Vascular Laboratory for the legally required time period. This chartconstitutes the legal record of any testing performed. ICA STENOSIS CRITERIA: Degree of Stenosis, % ICA PSV, cm/sec Plaque Estimate, % ICA/CCA Ratio ICAEDV, cm/sec Normal <180 None <2.0 <40 <50 <180 <50 <2.0 <40 50-69 180-230 >50 2.0-4.0 40-100 >70 but less than near occlusion >230 >50 >4.0 >100 Near Occlusion High, low, or undetectable Visible Variable Variable Total Occlusion Undetectable Visible, no detectable lumen Not applicableNot applicable Electronically Signed By: Morgan Paredes MD 05/30/2024 7:56:18 PM CDT Electronically Signed By: Morgan Paredes MD 05/30/2024 7:56:18 PM CDT Carotid Arteries Morgan Paredes MD [facility] PROCEDURES Final Result from Last 3 Months Additional Health Concerns Active Problems Noted Date Diagnosed Date Autogenerated Problem 07/11/2024 Insurance [employer] MEDICARE ADVANTAGE [facility] MEDICARE Address: [facility] [address] [place] [address] [employer] MEDICARE ADVANTAGE [facility] MEDIC[facility] Address: [address] [address] [place] [address] [facility] MED[facility] Address: [address] [address] [place] [address] MEDICARE ADVANTAGE [facility] MEDICARE Address: [address] [address] [place] [address] Advance Directives For more information, please contact: [phone] * Full Code (Latest Code Status on File) Date Activated Date Inactivated Comments 07/07/2024 10:31 AM 07/08/2024 4:32 AM Care Teams Engineer Conductor Relationship Specialty Start Date End Date Kermit Sullivan MD PCP - General 06/01/16
--- OUTSIDE RECORDS SUMMARY | 2024-07-12 12:54 | XMS_ITS | Encounter Summary ---
Author Organization [facility] [email or web address] [facility] Address [address] [place] [address] Phone Care Team Providers Care Tungsten Tender Name Role Phone Kermit Sullivan MD Primary Care Provider [phone] Encounter Details Date Type Department Care Team (Latest Contact Info) Description 06/28/2024 Results Follow-Up 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 Gender Identity Male 07/12/2019 9:28 AM CDT Sexual Orientation Straight 07/12/2019 9: 15 AM CDT documented as of this encounter Plan of Treatment Upcoming Encounters Date Type Department Care Team (Latest Contact Info) Description 07/18/2024 3:05 PM CDT Hospital Encounter [facility] 1 [place] [address] Lilli Welsh MD [facility] [address] [place] [address] Coronary artery disease involving [place] coronary artery of [place] heart without angina pectoris; Abnormal findings on cardiac catheterization 07/18/2024 3:05 PM CDT - 07/18/2024 5:20 PM CDT Surgery [facility] 1 [place] [address] Lilli Welsh MD [address] [facility] [address] [place], [place] [id number] PCI VIDA MAJOR CORONARY [id number] - [id number] documented as of this encounter Visit Diagnoses Not on filedocumented in this encounter Care Teams Tungsten Tender Relationship Specialty Start Date End Date Kermit Sullivan MD PCP - General 06/01/16 documented as of this encounter
--- OUTSIDE RECORDS SUMMARY | 2024-07-12 12:54 | XMS_ITS | Encounter Summary ---
Author Organization [facility] [employer] [facility] Address [address] [place] [address] Phone Care Team Providers Care College And Career Counselor Name Role Phone Kermit Sullivan MD Primary Care Provider [phone] Encounter Details Date Type Department Care Team (Late st Contact Info) Description 02/07/2020 Telephone [facility]iology [facility] Medical Office Building [address] [place] [address] Stormy Garsia Social History Tobacco Use Types Packs/Day Years Used Date Smoking Tobacco: Former Smokeless Tobacco: Never Sex and Gender Information Value Date Recorded Sex Assigned at Not on file 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 coronary artery of [place] heart without angina pectoris; Abnormal findings on cardiac catheterization 07/18/2024 3:05 PM CDT - 07/18/2024 5:20 PM CDT Surgery [facility] 1 [place] [address] Lilli Welsh MD [address] [place] [address] PCI VIDA MAJOR CORONARY [id number] - [id number] documented as of this encounter Visit Diagnoses Not on filedocumented in this encounter Care Teams College And Career Counselor Relationship Specialty Start Date End Date Kermit Sullivan MD PCP - General 06/01/16 documented as of this encounter
--- OUTSIDE RECORDS SUMMARY | 2024-07-12 12:54 | XMS_ITS | Encounter Summary ---
Author Organization [facility] [employer] [facility] Address [address] [place] [address] Phone Care Team Providers Care Newscast Producer Name Role Phone Kermit Sullivan MD Primary Care Provider [phone] Encounter Details Date Type Department Care Team (Latest Contact Info) Description 05/31/2024 Results Follow-Up 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 Gender Identity Male 07/12/2019 9:28 AM CDT Sexual Orientation Straight 07/12/2019 9: 15 AM CDT documented as of this encounter Plan of Treatment Upcoming Encounters Date Type Department Care Team (Latest Contact Info) Description 07/18/2024 3:05 PM CDT Hospital Encounter [facility] 1 [place] [address] Lilli Welsh MD [facility] [address] [place] [address] Coronary artery disease involving [place] coronary artery of [place] heart without angina pectoris; Abnormal findings on cardiac catheterization 07/18/2024 3:05 PM CDT - 07/18/2024 5:20 PM CDT Surgery [facility] 1 [place] [address] Lilli Welsh MD [address] [facility] [address] [place], [place] [id number] PCI VIDA MAJOR CORONARY [id number] - [id number] documented as of this encounter Visit Diagnoses Not on filedocumented in this encounter Care Teams Newscast Producer Relationship Specialty Start Date End Date Kermit Sullivan MD PCP - General 06/01/16 documented as of this encounter
--- OUTSIDE RECORDS SUMMARY | 2024-07-12 12:54 | XMS_ITS | Encounter Summary ---
Author Organization [facility] [employer] [facility] Address [address] [place] [address] Phone Care Team Providers Care Mine Production Engineer Name Role Phone Kermit Sullivan MD Primary Care Provider [phone] Encounter Details Date Type Department Care Team (Late st Contact Info) Description 07/07/2024 Telephone [facility] Cardiology [address] [place] [address] Jean Puri MD [address] [facility] [address] [place] [address] Social History Tobacco Use Types Packs/Day Years Used Date Smoking Tobacco: Former Smokeless Tobacco: Never Personal Safety Answer Date Recorded Have you ever been in or are you currently in a harmful physical or emotional relationship or is someone making you feel afraid or unsafe? 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 Pt confirmed that he is able to do 07/[address] Jose Flores Pt would like to complete precath labs at [facility] Pt aware of precath instructions * Telephone Encounter - Neville Noel RN - 07/10/2024 8:51 AM CDT LMOR for pt to call. * Telephone Encounter - Neville Noel RN - 07/07/2024 1:00 PM CDT LMOR to confirm if July 18 works for pt * Telephone Encounter - Neville Noel RN - 07/07/2024 12:[address] Puri . Pt is needing PCI with Dr Flores for next or following Wednesday documented in this encounter Plan of Treatment Upcoming Encounters Date Type Department Care Team (Latest Contact Info) Description 07/18/2024 3:05 PM CDT Hospital Encounter [facility] V[facility] 1 [place] [address] Lilli Flores MD [address] [place] [address] Coronary artery disease involving [place] coronary artery of [place] heart without angina pectoris; Abnormal findings on cardiac catheterization 07/18/2024 3:05 PM CDT - 07/18/2024 5:20 PM CDT Surgery [facility] 1 [place] [address] Lilli Flores MD [address] [place] [address] PCI VIDA MAJOR CORONARY [id number] - [id number] Scheduled Orders Name Type Priority Associated Diagnoses Orde r Schedule CBC with auto differential Lab Routine Coronary artery disease involving [place] coronary artery of [place] heart without angina pectoris Pre-procedure lab exam Abnormal findings on cardiac catheterization Expected: 07/11/2024, Expires: 01/10/2026 Basic metabolic panel Lab Routine Coronary artery disease involving [place] coronary artery of [place] heart without angina pectoris Pre-procedure lab exam Abnormal findings on cardiac catheterization Expected: 07/11/2024, Expires: 07/11/2025 documented as of this encounter Goals Goal Patient Goal Type Associated Problems Recent Progress Patient-Stated? Author Autogenera melany Goal Care Plan Autogenerated Problem No Wicho, Addison Campbell RN documented as of this encounter Visit Diagnoses Diagnosis Coronary artery disease involving [place] coronary artery of [place] heart without angina pectoris- Primary Pre-procedure lab exam Pre-procedural laboratory examination Abnormal findings on cardiac catheterization Abnormal findings on cardiac catheterization- Primary Coronary artery disease involving [place] coronary artery of [place] heart without angina pectoris Coronary artery disease involving [place] coronary artery of [place] heart without angina pectoris Abnormal findings on cardiac catheterization documented in this encounter Orders Case Request Count Last Ordered Date First Orde red Date CASE REQUEST FELLER BUNCHER OPERATOR 1 07/11/2024 documented in this encounter Additional Health Concerns Active Problems Noted Date Diagnosed Date Autogenerated Problem 07/11/2024 documented as of this encounter Care Teams Mine Production Engineer Relationship Specialty Start Date End Date Kermit Sullivan MD PCP - General 06/01/16 documented as of this encounter
--- OUTSIDE RECORDS SUMMARY | 2024-07-12 12:54 | XMS_ITS | Continuity of Care Document ---
Author Organization [facility] Address [address] [place] [address] Phone Care Team Providers Care Singeing Torch Operator Name Role Phone Dafne Ontiveros Unavailable Unavailable Procedures Procedure Date Eye Exam, New Patient Dilated Retinal Exam W Interpretation Oc Advance Directives Directive Yes / No Effective Date File Name No Information Encounters Encounter Description Practice Location Reason(s) For Visit Diagnoses Date Provider Providers Copied on Encounter formerly [facility], [address], [place], [place], [id number], [place] tel:[phone] [facility] No Information [phone] , [address], [place], [address], [place]. tel:[phone] Referring Provider: Tayler Tello, [facility] [place], [address]. tel:[phone] Family History Family Member Type Diagnosis Age At Onset No Information Payers Payer name Insurance type Covered constitution party ID Authoriza tion(s) Medicare [facility] [id number] [facility] Commercial CI [id number] Social History Type Description Quantity Date Captured Comments Sex Male Smoking Status No Information Chief Complaint And Reason For Visit No Information Reason For Referral Reason For Referral No Information History Of Present Illness Encounter Date Complaint History Of Prese nt Illness No Information Functional Status Date Functional Assessmen t No Information Instructions Date Instruction Additional Infor mation No Information Assessments Type Assessment Date No Information Patient Care Teams Name Effective Dates (start - stop) Status Members No Information
--- OUTSIDE RECORDS SUMMARY | 2024-07-12 12:54 | XMS_ITS | Clinical Summary ---
Author Organization [facility] Address [address], [address] [address] Phone Care Team Providers Care Assistant Associate Full Professor Name Role Phone Kermit Sullivan MD Primary Care Provider Social History Tobacco Use Types Packs/Day Years Used Date Smoking Tobacco: Never Assessed Sex and Gender Information Value Date Recorded Sex Assigned at Not on file Legal Sex Male 8:57 PM CDT Gender Identity Not on file Sexual Orientation Not on file Plan of Treatment Health Maintenance Due Date Last Done Comments Hepatitis C Virus (HCV) Screening 1945 TdaP Immunization 1945 Pneumococcal Immunization (5 0+ years) (1 of 1 - PCV) 12/09/1993 Zoster Immunization (1 of 2) 12/09/1993 Respiratory Syncytial Virus (RSV) Immunization (Adult) (1 - 1-dose 75+ series) 12/09/2018 Influenza Immunization (#1) 2023 SARS-COV-2 Immunization ( season) 2023 Colonoscopy High Risk Discontinued 11/15/2019 , 05/26/2018, 05/21/2011 Colonoscopy Discontinued 11/15/2019, 05/26/2018, 05/21/2011 Colorectal Cancer Screening Discontinued Cologuard Discontinued Hepatitis B Immunization Aged Out No longer eligible based on patient's age to complete this topic Immunochemical Fecal Occult Blood Discontinued Meningococcal Immunization (ACWY) Aged Out No longer eligible based on patient's age to complete this topic Rotavirus Immunization Aged Out No lo nger eligible based on patient's age to complete this topic Procedures Procedure Name Priority Date/Time Associated Diagnosis Comments HM COLONOSCOPY Routine 11/15/2019 from Last 3 Months or Most Recently Relevant to Health Maintenance Results * COLONOSCOPY (11/15/2019) Maximus Martell DO PROCEDURE/MINOR SURGICAL ORDERA BLES Final Result from Last 3 Months or Most Recently Relevant to Health Maintenance Insurance [facility] Care Teams Assistant Associate Full Professor Relationship Specialty Start Date End Date Kermit Sullivan MD [address] [place] [phone] PCP - General Family Medicine 04/15/17
--- OUTSIDE RECORDS SUMMARY | 2024-07-12 12:54 | XMS_ITS | Clinical Summary ---
Author Organization [facility] Address [address] [facility] [place] [address] Care Team Providers Care Mold Yard Supervisor Name Role Phone Kermit Sullivan MD Primary Care Provider Source Comments [facility],non-owned Affiliates and Associated Physician Practices is amultiple site organization consisting of ambulatory clinics and hospital sitesin [place], [place], [place] and [place]. This disclosure is being madepursuant to the Care Everywhere program and may not contain all information available regarding this patient. Last updated 17.[facility] Allergies Active Allergy Reactions Criticality Noted Date Comments Adhesive Sensitivity Rash Medium 11/23/2013 Medications * Be aware that medications may not be up to date on this document. Alwaysverify current medications with the patient. budesonide-form oterol (SYMBICORT) 160-4.5 MCG/ACT inhaler 3 03/31/2016 Active tretinoin (RETIN-A) 0.05 % cream Pea sized amount to neck at night. 30 days supply. 06/23/2016 Active tamsulosin (FLOMAX) 0.4 MG capsule Take 1 capsule by mouth once daily 05/28/2016 Active montelukast (SINGULAIR) 10 MG tablet Take 1 tablet by mouth once daily 04/29/2016 Active lisinopril (PRINIVIL; ZESTRIL) 2.5 MG tablet Take 1 tablet by mouth once daily 06/08/2016 Active levothyroxine (SYNTHROID) 150 MCG tablet Take 1 tablet by mouth once daily 04/07/2016 Active SITagliptin (JANUVIA) 25 MG tablet Take 1 tablet by mouth once daily 04/30/2016 Active albuterol (PROVENTIL;VENT GANESH) (2.5 MG/3ML) 0.083% nebulizer solution Inhale 3 mL by mouth every 4 hours as needed for Wheezing Active cetirizine (ZYRTEC) 10 MG tablet Take 1 tablet by mouth once daily Active ezetimibe (ZETIA) 10 MG tablet Take 1 tablet by mouth once daily Active MULTIPLE VITAMINS-MINERA LS PO Take 1 Dose by mouth once daily Active simvastatin (ZOCOR) 2.5 mg tablet Take 2.5 mg by mouth at bedtime Active Fluticasone-Ume clidin-Vilant (TRELEGY ELLIPTA) 100-62.5-25 MCG/INH Inhale 1 puff by mouth once daily Active finasteride (PROSCAR) 5 MG tablet Take 5 mg by mouth once daily 1 04/07/2018 Active fexofenadine (JENNIFER ALLERGY) 180 MG tablet Take 180 mg by mouth once daily Active METFORMIN HCL PO Take 500 mg by mouth once daily Active nitroGLYCERIN (NITROSTAT) 0.4 MG tablet Dissolve 0.4 mg under the tongue as directed 3 pills prn Active aspirin (ASPIRIN) 325 MG tablet Take 325 mg by mouth once daily Active Active Problems Problem Noted Date Diagnosed Date History of nonmelanoma skin cancer 11/01/2018 Melanocytic nevi of trunk 07/25/2017 Acne vulgaris 06/23/2016 Other rosacea 06/23/2016 Inflamed seborrheic keratosis 11/14/2014 Lentigines 11/14/2014 Actinic keratosis 11/23/2013 H/O melanoma in situ 11/23/2013 Seborrheic keratoses 11/23/2013 Neoplasm of uncertain behavior of skin 4 Family History Medical History Relation Name Comments Cancer - Skin, Non Melanoma Father Allergy (Severe) Neg Hx Asthma Neg Hx CVA Neg Hx Cancer Neg Hx Cancer - Breast Neg Hx Cancer - Other Neg Hx Cancer - Skin, Melanoma Neg Hx Eczema Neg Hx Hemophilia Neg Hx Psoriasis Neg Hx Rashes/Skin Problems Neg Hx Relation Name Status Comments Father Social History Tobacco Use Types Packs/Day Years Used Date Smoking Tobacco: Former Smokeless Tobacco: Never Alcohol Use Standard Drinks/Week Comments Yes 0 (1 standard drink = 0.6 oz pur e alcohol) Sex and Gender Information Value Date Recorded Sex Assigned at Not on file 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 Gender Identity Not on file Sexual Orientation Not on file Plan of Treatment Health Maintenance Due Date Last Done Comments DTAP/TDAP/TD VACCINES (1 - Tdap) 12/09/1962 PNEUMOCOCCAL VACCINE 50+ (1 of 1 - PCV) 12/09/1993 ZOSTER VACCINE (1 of 2) 12/09/1993 Respiratory Syncytial Virus (RSV) Vaccine Pt: or over 60 yrs (1 - 1-dose 75+ series) 12/09/2018 COVID-19 VACCINE ( - 2023-2 5 season) 2023 DEPRESSION SCREENING 02/09/2024 MEDICARE AWV CALENDAR YEAR 2024 INFLUENZA VACCINE (Season Ended) 2024 HEPATITIS B VACCINE Aged Out No longe r eligible based on patient's age to complete this topic HIB VACCINE Aged Out No longer eligi ble based on patient's age to complete this topic HPV VACCINE Aged Out No longer eligi ble based on patient's age to complete this topic MENINGOCOCCAL (Group B) VACC INE SHARED DECISION-MAKING Aged Out No longer eligibl e based on patient's age to complete this topic MENINGOCOCCAL GROUPS A/C/Y/W VACCINE Aged Out No longer eligible b ased on patient's age to complete this topic Insurance [facility] MANAGED MEDICARE ADV Care Teams Mold Yard Supervisor Relationship Specialty Start Date End Date Kermit Sullivan MD [address] [place] [address] PCP - General 10/23/13
--- OUTSIDE RECORDS SUMMARY | 2024-07-12 12:54 | XMS_ITS | Encounter Summary ---
Author Organization [facility] Address [address] [place] [address] Phone Care Team Providers Care Belt Sander Stone Name Role Phone Kermit Sullivan MD Primary Care Provider [phone] [phone] Encounter Details Date Type Department Care Team (Late st Contact Info) Description 05/31/2024 Results Follow-Up [facility] Cardiology 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 1 [place] [address] Lilli Welsh MD [address] [facility] [address] [place] [address] Coronary artery disease involving tribe coronary artery of tribe heart without angina pectoris; Abnormal findings on cardiac catheterization 07/18/2024 3:05 PM CDT - 07/18/2024 5:[address] [facility] 1 [place] [address] Lilli Welsh MD [address] [facility] [address] [place] [address] PCI VIDA MAJOR CORONARY [id number] - [id number] documented as of this encounter Visit Diagnoses Not on filedocumented in this encounter Care Teams Belt Sander Stone Relationship Specialty Start Date End Date Kerimt Sullivan MD PCP - General 06/01/16 documented as of this encounter
--- OUTSIDE RECORDS SUMMARY | 2024-07-12 12:54 | XMS_ITS | Referral Summary ---
Author Organization [facility] Address [address] [place] [address] Care Team Providers Care Hydraulic Punch Press Operator Name Role Phone Kermit Sullivan MD Primary Care Provider Encounters Date Type Department Care Team Description 07/07/2024 Telephone [facility] [address] [facility] [address] [place] [address] Morgan Paredes MD 07/07/2024 11:35 AM CDT - 07/07/2024 12:40 PM CDT Surgery [address] [place] [address] Morgan Paredes MD LEFT HEART CATHETERIZATION WITH CORONARY ANGIOGRAPHY AND WITH OR WITHOUT LEFT VENTRICULOGRAM [id number] 07/07/2024 11:35 AM CDT - 07/07/2024 11:59 PM CDT Hospital Encounter [address] [place] [address] Morgan Paredes MD Coronary artery disease involving [place] coronary artery of [place] heart without angina pectoris [I25.10] (Primary Dx); Abnormal stress test Discharge Disposition: Discharge to home or self care 06/28/2024 Results Follow-Up [facility] [address] [place] [address] Medical Office Building [address] [place] [address] Park Martinez RMA Basic metabolic panel, CBC with auto differential 06/27/2024 Orders Only [facility] [address] [place] [address] 8th [place] [address] [place] [address] Morgan Paredes MD 06/22/[address] 8th [place] [address] [place] [address] Morgan Paredes MD Procedure ([facility] R[facility]) 05/31/[address] 8th [place] [address] [place] [address] Morgan Paredes MD Test Results (Carotid Doppler) 05/31/2024 Results Follow-Up [address] [place] [address] Park Martinez RMA US Carotids Duplex Bilateral 05/31/2024 Results Follow-Up [address] [place] [address] Park Martinez RMA Transthoracic Echo (TTE) With Bubble Study 05/30/2024 1:00 PM CDT Office Visit [facility] [address] [place] [address] [place] [address] Morgan Paredes MD Pre-operative cardiovascular examination (Primary Dx); Mixed hyperlipidemia; Primary hypertension 05/30/2024 11:30 AM CDT Ancillary Procedure [facility] [address] [place] [address] [address] [place] [address] Coronary artery disease involving [place] coronary artery of [place] heart without angina pectoris; Primary hypertension 05/30/2024 10:30 AM CDT Ancillary Procedure [facility] [address] [place] [address] [address] [place] [address] Coronary artery disease involving [place] coronary artery of [place] heart without angina pectoris; Primary hypertension 05/30/2024 10:00 AM CDT Ancillary Procedure [facility] [address] [facility] [address] [place] [address] Coronary artery disease involving [place] coronary artery of [place] heart without angina pectoris; Carotid bruit, unspecified laterality; Primary hypertension from Last 3 Months Allergies No known active allergies Medications finasteride (PROSCAR) 5 mg tablet TAKE 1 TABLET BEDTIME Active ezetimibe (ZETIA) 10 mg tablet take 1 tablet daily Active levothyroxine (SYNTHROID) 150 mcg tablet daily. Activ e montelukast (SINGULAIR) 10 mg tablet daily. 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 Gender Identity Male 07/12/2019 9:28 AM CDT Sexual Orientation Straight 07/12/2019 9: 15 AM CDT Last Filed Vital Signs Vital Sign Reading [...] Description 07/18/2024 3:05 PM CDT Hospital Encounter [facility] [address] [place] [address] Lilli Welsh MD [address] [place] [address] Coronary artery disease involving [place] coronary artery of [place] heart without angina pectoris; Abnormal findings on cardiac catheterization 07/18/2024 3:05 PM CDT - 07/18/2024 5:20 PM CDT Surgery [facility] [address] [facility] [place] [address] Lilli Welsh MD [address] [place] [address] PCI VIDA MAJOR CORONARY [id number] - [id number] Goals Goal Patient Goal Type Associated Problems Recent Progress Patient-Stated? Author Autogenera melany Goal Care Plan Autogenerated Problem No Addison Sands RN Procedures Procedure Name Priority Date/Time Associated Diagnosis [...] 1:26 PM CDT Coronary artery disease involving [place] coronary artery of [place] heart without angina pectoris Primary hypertension TRANSTHORACIC ECHO (TTE) COMPLETE W DOPPLER/CF W CONTRAST W BUBBLE Routine 05/30/2024 11:22 AM CDT Coronary artery disease involving [place] coronary artery of [place] heart without angina pectoris Primary hypertension US CAROTIDS DUPLEX BILATERAL Schedule Routine, Read Routine (OP Routine) 05/30/2024 10:41 AM CDT Coronary artery disease involving [place] coronary artery of [place] heart without angina pectoris Carotid bruit, unspecified laterality Primary hypertension from Last 3 Months Results * LEFT HEART CATHETERIZATION WITH CORONARY ANGIOGRAPHY AND WITH AND WITHOUT LEFT VENTRICULOGRAM (07/07/2024 11:55 AM CDT) Anatomical Region Laterality Modality X-Ray Angiograph y Narrative 07/07/2024 7:29 PM CDT Table formatting from the original result was not included. CARDIAC CATHETERIZATION Patient: Brennon Bowman [id number] : 1945 Date of Service: 07/07/2024 FINAL [...] (2.75 x 15 resolute Etienne stent ) Diabetes Type 2 History of [...] daily. montelukast (SINGULAIR) 10 mg tablet daily. suepmfmqsobp-zfa-rekn-FA-vit K 18 mg iron-400 mcg-25 mcg tablet [...] resolute drug-eluting stent. (2.75 x 15 resolute [place] stent ) I reviewed the following labs [...] used for local anesthesia. 5. A 5F Onset sheath was placed in the right radial [...] complications were Noted. Pt remained hemodynamically stable. [id number] I personally performed or supervised the procedure [...] about verbage above please contact me at [phone]. us Morgan Paredes MD CV CARDIAC CATH [...] 06/28/2024 2:41 AM CDT FASTING:YES FASTING: YES Morgan Paredes MD LAB BLOOD ORDERABLES Final Res ult [facility] [address] [place] [address] * (ABNORMAL) Basic metabolic panel (06/27/2024 8:28 AM CDT) Pathologist [facility] [place] Glucose 112(H) 65 - 99 mg/dL [facility] [...] LAB BLOOD ORDERABLES Final Res ult [facility] [address] [place] [address] * NM MPI SPECT (Rest and/or Stress) Multiple Studies (05/30/2024 1:26 PM CDT) Anatomical Region Laterality Modality Body N/A Electrocardiogra phy Narrative 06/01/2024 7:20 AM CDT Table formatting from the original result was not included. [facility] [address] [address] Nuclear MPI Pharmaceutical Study Patient Name: Brennon [...] the written comments contained within the report. us Morgan Paredes MD [facility] PROCEDURES Final Result * TRANSTHORACIC ECHO (TTE) COMPLETE W DOPPLER/CF W CONTRAST W BUBBLE (05/30/2024 11:22 AM CDT) Anatomical Region Laterality Modality Ultrasound 05/30/2024 9:48 AM CDT Narrative 05/30/2024 8:06 PM CDT [facility] [address], [address] [place] [address] Transthoracic Echocardiographic Report Patient Name: BRENNON BOWMAN R : 1945 (78y 5m) Gender: M Study Date: 05/30/2024 09:48:33 AM Ht(Inch): 76 Wt(Lb): 234.99 BSA: 2.39 Manager Commercial Real Estate: Rasheed Chacon,[facility] Location: [facility] Order Provider: MORGAN PAREDES Heart Rate: 90 BMI: 28.6 BP: [...] windows. INDICATIONS: I25.10 Atherosclerotic heart disease of [place] coronary artery without angina pectoris and I10 [...] 05/30/2024 8:06:43 PM CDT Procedure Note Morgan Paredes MD - 05/30/2024 [facility], [address] [place] [address] Transthoracic Echocardiographic Report Patient Name: BRENNON BOWMAN R : 1945 (78y 5m) Gender: M Study Date: 05/30/2024 09:48:33 AM Ht(Inch): 76 Wt(Lb): 234.99 BSA: 2.39 Manager Commercial Real Estate: Susy Chacon),[facility] Location: [facility] Order Provider:MORGAN PAREDES Heart Rate: 90 BMI: [...] windows. INDICATIONS: I25.10 Atherosclerotic heart disease of [place] coronary artery withoutangina pectoris and I10 Essential [...] [ 3.00 - 4.00 ] MV Decel Doxo174.99 msec [ 104.00 - 258.00 ] LA [...] 5.00 ] PV Peak PG4.84 mmHg RA Noltwc07.26 ml RA Volume Index12.66 ml/m2 IVC Diam1.39 [...] 05/30/2024 7:56 PM CDT [facility], [address] [place] [address] Carotid Duplex Report Patient Name: BRENNON BOWMAN R : 1945 (78y 5m) Gender: M Study Date: 05/30/2024 09:49:19 AM Manager Commercial Real Estate: Lennie Sharma RVT Location: [facility] Order Provider: MORGAN PAREDES BP: 124/83 Quality: Adequate Ref Provider: MORGAN PAREDES PROCEDURES: Arterial Report: [id number]: Duplex scan of extracranial arteries; complete bilateral study. INDICATIONS: I25.10 Atherosclerotic heart disease of [place] coronary artery without angina pectoris, R09.89 Other [...] of the right and left vertebral arteries. STANDING ROCK VESSEL VELOCITY MEASUREMENTS: Right PSV (cm/s) Right [...] Paredes MD - 05/30/2024 [facility], [address] [place] [address] Carotid Duplex Report Patient Name: BRENNON BOWMAN R : 1945 (78y 5m) Gender: M Study Date: 05/30/2024 09:49:19 AM Manager Commercial Real Estate: Lennie Shrama RVT Location:[facility] Order Provider: MORGAN PAREDES BP: 124/83 Quality: Adequate Ref Provider: MORGAN PAREDES PROCEDURES: Arterial Report: [id number]: Duplex scan of extracranial arteries; completebilateral study. INDICATIONS: I25.10 Atherosclerotic heart disease of [place] coronary artery withoutangina pectoris, R09.89 Other specified [...] of the right and left vertebral arteries. STANDING ROCK VESSEL VELOCITY MEASUREMENTS: Right PSV (cm/s) Right [...] MD 05/30/2024 7:56:18 PM CDT Carotid Arteries us Morgan Paredes MD [facility] US PROCEDURES Final Result from Last 3 Months Additional Health Concerns Active Problems Noted Date Diagnosed Date Autogenerated Problem 07/11/2024 Insurance UHC MEDICARE ADVANTAGE UHC MEDICARE ADVANTAGE UHC MEDICARE ADVANTAGE Advance Directives For more information, please contact: [phone] * Full Code (Latest Code Status on File) Date Activated Date Inactivated Comments 07/07/2024 10:31 AM 07/08/2024 4:32 AM Care Teams Hydraulic Punch Press Operator Relationship Specialty Start Date End Date Motwani, Kermit K., MD PCP - General 06/01/16
--- OUTSIDE RECORDS SUMMARY | 2024-07-12 12:54 | XMS_ITS | Encounter Summary ---
Author Organization [facility] Address [address] [place] [address] Phone Care Team Providers Care Casino Operations Supervisor Name Role Phone Kermit Sullivan MD Primary Care Provider [phone] Encounter Details Date Type Department Care Team (Latest Contact Info) Description 07/14/2021 Orders Only [facility] Scanning, Provider Social History Tobacco Use Types Packs/Day Years Used Date Smoking Tobacco: Former Smokeless Tobacco: Never Sex and Gender Information Value Date Recorded Sex Assigned at Not on file 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 Gender Identity Male 07/12/2019 9:28 AM CDT Sexual Orientation Straight 07/12/2019 9: 15 AM CDT documented as of this encounter Plan of Treatment Upcoming Encounters Date Type Department Care Team (Latest Contact Info) Description 07/18/2024 3:05 PM CDT Hospital Encounter [facility] 1 [place] [address] Lilli Welsh MD [address] [facility] [address] [place] [address] Coronary artery disease involving [place] coronary artery of [place] heart without angina pectoris; Abnormal findings on cardiac catheterization 07/18/2024 3:05 PM CDT - 07/18/2024 5:20 PM CDT Surgery [facility] 1 [facility] [place] [address] Lilli Welsh MD [address] [place] [address] PCI VIDA MAJOR CORONARY [id number] - [id number] documented as of this encounter Procedures Procedure Name Priority Date/Time Associated Diagnosis Comments SCAN - LABS 07/14/2021 documented in this encounter Results * SCAN - LABS (07/14/2021) us Provider Scanning Final Result documented in this encounter Visit Diagnoses Not on filedocumented in this encounter Care Teams Casino Operations Supervisor Relationship Specialty Start Date End Date Kermit Sullivan MD PCP - General 06/01/16 documented as of this encounter
--- OUTSIDE RECORDS SUMMARY | 2024-07-12 12:54 | XMS_ITS | Encounter Summary ---
Author Organization [facility] Address [address] [place] [address] Phone Care Team Providers Care Realtime Court Reporter Name Role Phone Kermit Sullivan MD Primary Care Provider [phone] Encounter Details Date Type Department Care Team (Latest Contact Info) Description 02/22/2020 Orders Only [facility] Scanning, Provider Social History Tobacco Use Types Packs/Day Years Used Date Smoking Tobacco: Former Smokeless Tobacco: Never Sex and Gender Information Value Date Recorded Sex Assigned at Not on file 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 Gender Identity Male 07/12/2019 9:28 AM CDT Sexual Orientation Straight 07/12/2019 9: 15 AM CDT documented as of this encounter Plan of Treatment Upcoming Encounters Date Type Department Care Team (Latest Contact Info) Description 07/18/2024 3:05 PM CDT Hospital Encounter [facility] 1 [place] [address] Lilli Welsh MD [address] [facility] [address] [place] [address] Coronary artery disease 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 artery of [place] heart without angina pectoris; Abnormal findings on cardiac catheterization 07/18/2024 3:05 PM CDT - 07/18/2024 5:20 PM CDT Surgery [facility] 1 [facility] [place] [address] Lilli Welsh MD [address] [place] [address] PCI VIDA MAJOR CORONARY [id number] - [id number] documented as of this encounter Procedures Procedure Name Priority Date/Time Associated Diagnosis Comments SCAN - LABS 02/22/2020 documented in this encounter Results * SCAN - LABS (02/22/2020) us Provider Scanning Final Result documented in this encounter Visit Diagnoses Not on filedocumented in this encounter Care Teams Realtime Court Reporter Relationship Specialty Start Date End Date Kermit Sullivan MD PCP - General 06/01/16 documented as of this encounter
== END 2024-07-12 12:50 | disposition home or self-care (01) ==
PROVIDERS: PCP Family Medicine; Visit Provider Nurse Practitioner Family
DX: R05.3 Chronic cough (principal)
CPT/HCPCS: 71250

== ENCOUNTER 2024-10-02 10:17 | Outpatient (CLI) | payer MEDICARE, SELFPAY ==
--- NOTE | ~2024-10-02 | XR_ITS ---
XR chest 2V 10/02/2024 10:29 Indication: Shortness of breath Procedure: 2 view chest Comparison: 07/20/2023 Findings: Heart size normal. Basilar atelectasis. No focal pneumonia, edema, significant effusion or pneumothorax. Mild thoracic spondylosis. Impression: 1: Bibasilar atelectasis. Reviewed, dictated and finalized at location O. Impression: 1: Bibasilar atelectasis.
== END 2024-10-02 10:18 | disposition home or self-care (01) ==
LOC: MICIMG 10:21
PROVIDERS: PCP Family Medicine; Visit Provider Nurse Practitioner Family
DX: J98.11 Atelectasis (principal)
CPT/HCPCS: 71046